=== PATIENT | male | born 1970 | race Hispanic/Latino ===

== ENCOUNTER 2017-10-17 15:17 | Emergency (ER) | payer MEDICARE ==
[~2017-10-17] VITALS: Ht 170.2 cm; Wt 79.4 kg
[~2017-10-17 15:17] MED LIST: ASPIR-LOW81 MG PO; ASPIRIN325 MG PO; ATORVASTATIN CA10 MG PO; AZITHROMYCIN250 MG PO; CALCIUM ACETAT667 M1 PO; CARVEDILOL12.5 MG PO; CIPRO500 MG PO; COREG12.5 MG PO; FLOMAX0.4 MG PO; GLIPIZIDE ER5 MG PO; HUMALOG100 UNIT/1 SQ; KEPPRA500 MG PO; LASIX; LASIX40 MG PO; LEVEMIR100 UNIT/1 SC; LEVEMIR100 UNIT/1 SQ; LISINOPRIL10 MG PO; MELATONIN3 MG PO; METOPROLOL TART25 MG PO; NIFEDIPINE10 MG PO; PENICILLIN V P500 MG PO; PLAVIX75 MG PO; POLYETHYLENE GL17 GM PO; RENVELA0.8 GM PO; SACUBITRIL VALSARTAN PO; TAMSULOSIN HCL0.4 MG PO; VITAMIN D1000 UNI1 PO; WARFARIN SODIU2.5 MG PO
--- OUTSIDE RECORDS SUMMARY | 2017-10-17 15:19 | XMS REPORT | Clinical Summary ---
Author Author DAVE [facility] Address Unknown Phone Unavailable Care Team Providers [employer] Employee Name Role Phone PCP Unavailable Allergies No Known Allergies Current Medications Prescription Sig. Disp. Refills Start End Date Status Date atorvastatin (LIPITOR) 40 Take 40 mg by mouth Active MG tablet daily. sevelamer (RENVELA) 800 Take 3,200 mg by mouth Active mg tablet daily . tamsulosin (FLOMAX) 0.4 Take 0.4 mg by mouth Active mg Cp24 24 hr capsule nightly. levETIRAcetam (KEPPRA) Take 500 mg by mouth 2 Active 500 MG tablet (two) times daily. BD Ultra-Fine Irish Use as directed. Dispense 600 each 3 01/21/20 Active Insulin Pen [place] 4 mm as written, do not 16 x 32 G substitute. Brand medically necessary.to use 6 a day. pregabalin (LYRICA) 150 Take 150 mg by mouth 2 Active MG capsuleIndications: (two) times daily. 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 Missing or Non-Formulary Take 5 mg by mouth 2 Active MedicationIndications: (two) times daily. Eliquis 5 mg BID insulin detemir (LEVEMIR To use 16 units twice a 45 mL 3 05/20/20 Active FLEXTOUCH) 100 unit/mL (3 day. 17 mL) InPn injection famotidine (PEPCID) 20 MG Take 1 tablet (20 mg 0 05/20/20 Active tablet total) by mouth daily. 17 apixaban (ELIQUIS) 5 mg Take 1 tablet (5 mg 0 05/20/20 Active Tab tablet total) by mouth 2 (two) 17 times daily. carvedilol (COREG) 3.125 Take 1 tablet (3.125 mg 0 05/20/20 05/20/20 Active MG tablet total) by mouth 2 (two) 17 18 times daily. clopidogrel (PLAVIX) 75 Take 75 mg by mouth 05/20/20 Discontin mg tablet daily. 17 ued famotidine (PEPCID) 20 MG Take 20 mg by mouth 05/20/20 Discontin tablet daily. 17 ued aspirin 81 MG EC tablet Take 1 tablet (81 mg 30 tablet 0 01/21/20 Discontin total) by mouth daily. 16 17 ued blood-glucose meter kit Use as instructed 400 each 3 01/21/20 glucometer 16 17 Test strips to use 4 a day # 400 Refills x 3 Lancets to use 4 a day # 400 Refills x 3. carvedilol (COREG) 6.25 Take 1 tablet (6.25 mg 60 tablet 0 01/21/20 01/21/20 MG tablet total) by mouth 2 (two) 16 17 times daily. ferrous sulfate 325 (65 Take 1 tablet (325 mg 60 tablet 0 01/21/20 01/21/20 FE) MG tablet total) by mouth 2 (two) 16 17 times daily. insulin aspart (NOVOLOG To use up to 24 units 45 mL 3 01/21/2005/20 Discontin FLEXPEN) 100 unit/mL InPn three times a day with 16 17 ued meals. insulin detemir (LEVEMIR To use 32 units twice a 45 mL 3 01/21/20 Discontin FLEXTOUCH) 100 unit/mL (3 day. 16 17 ued mL) InPn injection insulin detemir (LEVEMIR To use 32 units bid. 45 mL 3 01/21/2005/20 Discontin FLEXTOUCH) 100 unit/mL (3 16 17 ued mL) InPn injection NIFEdipine (ADALAT CC) 30 Take 1 tablet (30 mg 30 tablet 0 01/21/20 01/21/20 MG 24 hr tablet total) by mouth daily. 16 17 HYDROmorphone (DILAUDID) Inject 0.5 mg 05/20/20 Discontin injection 1 intravenously every 2 17 ued mg/mLIndications: Severe (two) hours as needed. Pain carvedilol (COREG) 25 MG Take 25 mg by mouth 2 05/20/20 Discontin tablet (two) times daily with 17 ued breakfast and dinner. DAPTOmycin (CUBICIN) Inject 500 mg 05/20/20 Discontin IVIndications: after intravenously every 17 ued dialysis MWF Monday, Monday, Monday. vancomycin (VANCOCIN) Inject 1,000 mg 0 05/16/20 06/27/20 1000 mg in sodium intravenously 3 (three) 17 17 chloride 0.9 % (NS) 250 times a week for 42 days. mL ADD EASE IVPB HYDROcodone-acetaminophen Take 1 tablet by mouth 30 tablet 0 05/20/20 05/30/20 (NORCO 10-325) 10-325 mg every 4 (four) hours as 17 17 per tablet needed for Pain for up to 10 days. Max Daily Amount: 6 tablets Active Problems Problem Noted Date Infection and inflammatory reaction due to cardiac device, implant, and graft ([facility]) Septic shock ([facility]) 05/19/2017 MRSA bacteremia 05/09/2017 DM (diabetes mellitus), type 2, uncontrolled ([facility]) 01/21/2016 Acute blood loss anemia 01/21/2016 Anemia in ESRD (end-stage renal disease) ([facility]) 01/21/2016 ESRD (end stage renal disease) on dialysis ([facility]) 01/14/2016 S/P CABG x 5 01/14/2016 Hyperkalemia 01/14/2016 On intra-aortic balloon pump assist 01/14/2016 Acute post-operative pain 01/14/2016 Coronary artery disease involving [place] coronary artery of [place] heart 12/2015 without angina pectoris CAD (coronary artery disease) 01/08/2016 Ischemic cardiomyopathy 01/08/2016 Encounters Date Type Specialty Care Team Description 05/18/2017 Procedure Pass 05/18/2017 Surgery Finesse Vega, DEBRIDEMENT/I&D,WOUND MD EXTREMITY LOWER 05/17/2017 Anesthesia Shashi Avelar MD Event 05/12/2017 Anesthesia Manjit Estrella, Event BAND SEWER 05/12/2017 Procedure Pass 05/12/2017 Surgery Zhen Peterson, DEBRIDEMENT/I&D,STERNUM MD 05/09/2017 Hospital General Internal Medicine El Rivers MD - Encounter Mary Nestornel Tarangobenjaminjoy, 05/20/2017 MD Red, Mendel Lovett MD after 10/16/2016 Social History Tobacco Use Types Packs/Day Years Used Date Former Smoker Smokeless Tobacco: Never Used Comments: SMOKED SINCE HE WAS 17YRS OLD TO 11/2014 Alcohol Use Drinks/Week oz/Week Comments No Sex Assigned at Date Recorded Not on file Last Filed Vital Signs Vital Sign Reading Time Taken Blood Pressure 142/66 05/20/2017 12:00 PM CDT Pulse 88 05/20/2017 12:00 PM CDT Temperature 37.3 C (99.1 F) 05/20/2017 12:00 PM CDT Respiratory Rate 18 05/20/2017 12:00 PM CDT Oxygen Saturation 97% 05/20/2017 12:00 PM CDT Inhaled Oxygen - - Concentration Weight 88.8 kg (195 lb 12.8 oz) 05/19/2017 4:00 AM CDT Height 170.2 cm (5' 7") 05/18/2017 11:04 AM CDT Body Mass Index 30.67 05/19/2017 4:00 AM CDT Plan of Treatment Health Maintenance Due Date Last Done Comments INFLUENZA VACCINE 06/11/2017 Procedures Procedure Name Priority Date/Time Associated Diagnosis Comments DEBRIDEMENT/I&D,WOUND 05/18/2017 ILOPSOAS ABCESS EXTREMITY LOWER 1:16 PM CDT Case Notes I&D OF LEFT ILOPSOAS DEBRIDEMENT/I&D,STERNUM 05/12/2017 sterno clavicular abcess 8:00 AM CDT after 10/16/2016 Results * ECHOCARDIOGRAM REPORT - SCAN (06/13/2017 1:22 PM) Only the most recent of 2 results within the time period is included. * RHYTHM STRIP - SCAN (06/08/2017 5:21 PM) Only the most recent of 3 results within the time period is included. * TRANSFUSION SERVICE REPORT - SCAN (05/23/2017 3:54 PM) Only the most recent of 3 results within the time period is included. * Prepare Leuko-Red RBC (05/20/2017 11:54 PM) Only the most recent of 2 results within the time period is included. Component Value Ref Range CROSSMATCH COMPATIBLE Unit ABO A Pos UNIT NUMBER [id number] Status TRANSFUSED Blood Bank Product RED BLOOD CELLS PRODUCT CODE [id number] Specimen Performing Laboratory Other [facility] [place] * POC-Glucose meter (05/20/2017 11:20 AM) Only the most recent of 45 results within the time period is included. Component Value Ref Range POC-Glucose Meter 211 (H)Comment: TESTED AT [facility] [address] [facility] 70 - 110 mg/dL [facility] [address] Specimen Performing Laboratory Blood [address] [address] * Transfuse Leuko-Red RBC (05/20/2017 7:12 AM) Only the most recent of 2 results within the time period is included. * CBC with platelet count + automated diff (05/20/2017 4:16 AM) Only the most recent of 11 results within the time period is included. Component Value Ref Range WBC 10.7 (H) 4.0 - 10.0 K/ L RBC 2.62 (L) 4.20 - 5.80 M/ L Hemoglobin 7.9 (L) 13.0 - 16.8 GM/DL Hematocrit 24.0 (L) 40.0 - 50.0 % MCV 91.5 82.0 - 98.0 fL MCH 30.1 27.0 - 33.0 pg MCHC 32.9 32.0 - 36.0 GM/DL RDW 22.0 (H) 12.0 - 15.0 % Platelets 350 150 - 430 K/CU MM MPV 8.1 6.5 - 10.5 fL nRBC 0 0 - 0 /100 WBC % Neutros 72 % % Lymphs 15 % % Monos 13 % % Eos 1 % % Baso 0 % # Neutros 7.70 1.80 - 8.00 K/ L # Lymphs 1.60 1.48 - 4.50 K/ L # Monos 1.40 (H) 0.00 - 1.30 K/ L # Eos 0.10 0.00 - 0.50 K/ L # Baso 0.00 0.00 - 0.20 K/ L Specimen Performing Laboratory Blood - Arm, [facility] [address] [place] [address] * CBC with platelet count + automated diff (05/20/2017 4:16 AM) Only the most recent of 11 results within the time period is included. Specimen Performing Laboratory Blood Narrative The following orders were created for panel order CBC with platelet count + automated diff. Procedure Abnormality Status --------- - ------ CBC with platelet count ...[[id number]]AbnormalFinal result Please view results for these tests on the individual orders. * Magnesium (05/20/2017 4:16 AM) Only the most recent of 8 results within the time period is included. Component Value Ref Range Magnesium 1.8 1.5 - 3.0 mg/dL Specimen Performing Laboratory Blood - [place], [place] [address] * Basic Metabolic Panel (05/20/2017 4:16 AM) Only the most recent of 10 results within the time period is included. Component Value Ref Range Sodium 139 135 - 148 meq/L Potassium 3.8 3.5 - 5.5 meq/L Chloride 101 98 - 106 meq/L CO2 25 20 - 31 meq/L BUN 23 10 - 26 mg/dL Creatinine 4.47 (H) 0.50 - 1.20 mg/dL Glucose 188 (H) 70 - 110 mg/dL Calcium 8.4 (L) 8.5 - 10.5 mg/dL EGFR 14Comment: ESTIMATED GFR IS NOT ACCURATE mL/min/1.73 sq m CREATININE CLEARANCE IN PREDICTING GLOMERULAR FILTRATION RATE. ESTIMATED GFR IS NOT APPLICABLE FOR DIALYSIS PATIENTS. Specimen Performing Laboratory Blood - Arm, [place] [address] * Type and screen (05/19/2017 11:41 AM) Only the most recent of 2 results within the time period is included. Component Value Ref Range Ab Scrn NEGATIVE ABO Grouping A Rh Factor POS Specimen [place] [address] * Hemoglobin and hematocrit (05/19/2017 9:12 AM) Component Value Ref Range Hemoglobin 7.5 (L) 13.0 - 16.8 GM/DL Hematocrit 23.6 (L) 40.0 - 50.0 % Specimen Performing [place] [address] * Lactic acid, venous, whole blood (05/18/2017 11:29 PM) Component Value Ref Range Lactate, Venous 1.3 0.5 - 2.2 mmol/L Specimen Performing Laboratory Blood - Arm, [facility] [address] [place] [address] Narrative Effective 01/13/2016: Units/Reference Range Change New: 0.5-2.2 mmol/LPrevious: 5-20 mg/dL * Procalcitonin (05/18/2017 11:19 PM) Only the most recent of 2 results within the time period is included. Component Value Ref Range Procalcitonin 0.86 (H) <0.05 ng/mL Specimen Performing Laboratory Blood - Arm, [facility] [address] [place] [address] Narrative SEPSIS RISK (ng/mL) Low:0.05-0.50 Intermediate: 0.51-2.00 High: >=2.01 * Vancomycin level, random (05/18/2017 3:56 AM) Component Value Ref Range Vancomycin Rm 24.8 ug/mL Specimen Performing Laboratory Blood [facility] [address] [place] [address] Narrative Reference Range: No Normals Random vancomycin level with AM labs. * CT abdomen/pelvis with IV contrast (05/17/2017 12:47 AM) Only the most recent of 2 results within the time period is included. Specimen Performing Laboratory [employer] Narrative FINAL REPORT CLINICAL HISTORY: Previous diagnosis of left iliopsoas abscess FINDINGS: Multiple axial images of the abdomen and pelvis were performed after the uncomplicated administration of IV contrast. Oral contrast was given. This exam was performed according to our departmental dose-optimization program, which includes automated exposure control, adjustment of the mA and/or kV according to patient size and/or use of the iterative reconstruction technique. Comparison: May 10, 2017 Lower chest: Atelectasis versus pneumonitis in the left lung base. Small left effusion. Cardiomegaly. Previous median sternotomy. Liver: No significant findings. Gallbladder and biliary tree: High density in the gallbladder lumen, likely excreted IV contrast from a recent procedure Spleen: No significant findings. Adrenal Glands: No significant findings. Kidneys and ureters: No contrast excretion from the kidneys on delayed imaging, consistent with renal dysfunction Stomach and Duodenum: No significant findings. Pancreas: No significant findings. Bowel: No significant findings. Appendix: Normal. Bladder: Distended with urine Major vascular structures: Atherosclerotic calcifications Reproductive organs: No significant findings. Other: Redemonstrated ill-defined rim-enhancing hypodensity in the left iliopsoas muscle with a maximum cross-sectional dimension of 2.4 x 1.6 cm Skeleton: Advanced degenerative changes in the left hip. Underlying femoral head osteonecrosis cannot be excluded. IMPRESSION: Redemonstrated, ill-defined rim-enhancing hypodensity in the left iliopsoas muscle, now measuring 2.4 x 1.6 cm in maximum cross-sectional dimension, phlegmon versus abscess. Size is slightly decreased from previous. Small left pleural effusion and adjacent atelectasis versus pneumonitis. No IV contrast excretion from the kidneys on delayed imaging suggesting renal dysfunction. Advanced degenerative changes in the left hip. Underlying osteonecrosis cannot be excluded. Evaluation with MRI can be performed, if indicated. Signed: Anson Boo MD Report Verified Date/Time:05/17/2017 02:26:37 Reading Location: [address] Reading Room Procedure Note Interface, External Ris In - 05/17/2017 2:28 AM CDT FINAL REPORT CLINICAL HISTORY: Previous diagnosis of left iliopsoas abscess FINDINGS: Multiple axial images of the abdomen and pelvis were performed after the uncomplicated administration of IV contrast. Oral contrast was given. This exam was performed according to our departmental dose-optimization program, which includes automated exposure control, adjustment of the mA and/or kV according to patient size and/or use of the iterative reconstruction technique. Comparison: May 10, 2017 Lower chest: Atelectasis versus pneumonitis in the left lung base. Small left effusion. Cardiomegaly. Previous median sternotomy. Liver: No significant findings. Gallbladder and biliary tree: High density in the gallbladder lumen, likely excreted IV contrast from a recent procedure Spleen: No significant findings. Adrenal Glands: No significant findings. Kidneys and ureters: No contrast excretion from the kidneys on delayed imaging, consistent with renal dysfunction Stomach and Duodenum: No significant findings. Pancreas: No significant findings. Bowel: No significant findings. Appendix: Normal. Bladder: Distended with urine Major vascular structures: Atherosclerotic calcifications Reproductive organs: No significant findings. Other: Redemonstrated ill-defined rim-enhancing hypodensity in the left iliopsoas muscle with a maximum cross-sectional dimension of 2.4 x 1.6 cm Skeleton: Advanced degenerative changes in the left hip. Underlying femoral head osteonecrosis cannot be excluded. IMPRESSION: Redemonstrated, ill-defined rim-enhancing hypodensity in the left iliopsoas muscle, now measuring 2.4 x 1.6 cm in maximum cross-sectional dimension, phlegmon versus abscess. Size is slightly decreased from previous. Small left pleural effusion and adjacent atelectasis versus pneumonitis. No IV contrast excretion from the kidneys on delayed imaging suggesting renal dysfunction. Advanced degenerative changes in the left hip. Underlying osteonecrosis cannot be excluded. Evaluation with MRI can be performed, if indicated. Signed: Anson Boo MD Report Verified Date/Time: 05/17/2017 02:26:37 Reading Location: [address] Reading Room * Blood culture (05/16/2017 2:58 PM) Only the most recent of 6 results within the time period is included. Component Value Ref Range Result No growth in 5 days Specimen Performing Laboratory Blood - Arm, [facility] [address] [place] [address] * aPTT (05/16/2017 10:11 AM) Only the most recent of 14 results within the time period is included. Component Value Ref Range PTT 74.3 (H) 23.2 - 36.1 seconds Specimen Performing Laboratory Blood - Arm, [facility] [address] [place] [address] * PT/aPTT (05/16/2017 4:05 AM) Only the most recent of 3 results within the time period is included. Component Value Ref Range Protime 14.2 11.8 - 14.4 seconds INR 1.1 (L) 1.2 - 1.5 PTT 101.0 (H) 23.2 - 36.1 seconds Specimen Performing Laboratory Blood [facility] [address] [place] [address] Narrative RECOMMENDED COUMADIN/WARFARIN INR THERAPY RANGES STANDARD DOSE: 2.0 - 3.0 Includes: PROPHYLAXIS for venous thrombosis, systemic embolization; TREATMENT for venous thrombosis and/or pulmonary embolus. HIGH RISK: Target INR is 2.5-3.5 for patients with mechanical heart valves. * XR chest 1 view portable / bedside (05/14/2017 6:00 AM) Only the most recent of 3 results within the time period is included. Specimen Performing Laboratory [facility] Narrative FINAL REPORT CLINICAL INDICATION: Cough and atelectasis Comparison: 05/13/2017 The cardiomediastinal contours are stable. Central pulmonary vascular congestion appears slightly worsened. Worsening retrocardiac opacity in the left lung may reflect some combination of atelectasis and edema but pneumonitis should be excluded clinically. There is no pneumothorax. Signed: Anson Boo MD Report Verified Date/Time:05/14/2017 06:46:29 Reading Location: [address] Reading Room Procedure Note Interface, External Ris In - 05/14/2017 6:48 AM CDT FINAL REPORT CLINICAL INDICATION: Cough and atelectasis Comparison: 05/13/2017 The cardiomediastinal contours are stable. Central pulmonary vascular congestion appears slightly worsened. Worsening retrocardiac opacity in the left lung may reflect some combination of atelectasis and edema but pneumonitis should be excluded clinically. There is no pneumothorax. Signed: Anson Boo MD Report Verified Date/Time: 05/14/2017 06:46:29 Reading Location: [address] Reading Room * Phosphorus (05/13/2017 4:26 AM) Only the most recent of 3 results within the time period is included. Component Value Ref Range Phosphorus 6.8 (H) 2.5 - 4.5 mg/dL Specimen Performing Laboratory Blood [facility] [address] [facility] [place] [address] * AFB culture + smear (05/12/2017 8:58 AM) Only the most recent of 2 results within the time period is included. Component Value Ref Range Result No acid-fast bacilli isolated in 42 days AFB Smear No acid fast bacilli seen Specimen Performing Laboratory Tissue - Clavicle, Left [facility] [address] [place] [address] * Anaerobic culture (05/12/2017 8:58 AM) Only the most recent of 2 results within the time period is included. Component Value Ref Range Result No anaerobes isolated Specimen Performing Laboratory [facility] [id number] [place] [address] * Surgically obtained culture + gram stain (05/12/2017 8:58 AM) Only the most recent of 2 results within the time period is included. Component Value Ref Range Result 1+ Staphylococcus aureus (A)Comment: Methicillin Resistant Staphylococcus aureus isolated. Gram Stain Result <1+ White blood cells seen Gram Stain Result No organisms seen Specimen Performing Laboratory [facility] [address] [place] [address] Organism Antibiotic Method Susceptibility Staphylococcus aureus Clindamycin <=0.12: Susceptible Staphylococcus aureus Erythromycin >=8: Resistant Staphylococcus aureus Linezolid 2: Susceptible Staphylococcus aureus Oxacillin >=4: Resistant Staphylococcus aureus Rifampin <=0.5: Susceptible Staphylococcus aureus Tetracycline <=1: Susceptible Staphylococcus aureus Trimethoprim + <=10: Susceptible Sulfamethoxazole Staphylococcus aureus Vancomycin 1: Susceptible * Fungus culture + smear (05/12/2017 8:58 AM) Only the most recent of 2 results within the time period is included. Component Value Ref Range Result No fungus isolated in 28 days Fungus Smear No fungi seen Specimen Performing Laboratory Tissue - [facility], [address] [address] * Tissue Exam (05/12/2017 8:58 AM) Component Value Ref Range Case Report Surgical Pathology Report Case: [id number] Authorizing Provider: Zhen Peterson MD Collected: 05/12/2017 0858 Ordering Location: [facility] - Perioperative Received: 05/12/2017 1033 Services Pathologist: Vimal Hanson MD Specimen: Clavicle, Left, left clavicular head DIAGNOSIS CLAVICULAR HEAD, LEFT, DEBRIDEMENT - ACUTE AND CHRONIC OSTEOMYELITIS WITH GRANULATION TISSUE - NEGATIVE FOR MALIGNANCY Signing Pathologist Direct Phone Line: [phone] CPT Code(s) 26847; 04963 CLINICAL HISTORY Sternoclavicular abscess; debridement and I&D of sternum SPECIMEN SOURCE Left clavicle GROSS DESCRIPTION The instrument, paperwork, container, and cassette all read [id number]. Received in a container of formalin with the patient's name (Colton) and medical record number. Specimen A: Received in formalin labeled as "left clavicle tissue" are two pink-trevino segments of bone aggregating to 1.1 x 1.0 x 0.3 cm. The specimen is totally submitted in cassette A1 for processing after decalcification. JF/ew Specimen Performing Laboratory Tissue - Clavicle, Left [facility] [address] [place] [address] * SPIN/CONCENTRATION CHARGE (05/12/2017 8:53 AM) Component Value Ref Range Concentration charged Done Specimen Performing Laboratory Abscess - Clavicle, Left [address] [address] * XR hip 2 views left (05/11/2017 9:30 AM) Specimen Performing Laboratory [facility] Narrative FINAL REPORT TECHNIQUE: Frontal andlateral radiographs of the left hip dated 05/11/2017 HISTORY: Possible osteo COMPARISON: None. FINDINGS: No fracture or dislocation. There are ill-defined regions of lucency in the superior lateral aspect of the femoral head and acetabulum, best seen on the CT of the abdomen and pelvis. There is marked joint space narrowing of the left hip. No bone erosion or soft tissue nodule seen. No radiodense foreign body or subcutaneous emphysema. Vascular calcifications are seen. IMPRESSION: No fracture or dislocation. Ill-defined regions of lucency in the femoral head and acetabulum as described above, best seen on the CT scan performed one day prior. While these may be degenerative in nature, given the concern for infection, osteomyelitis cannot be excluded. MRI is recommended. Signed: Khris Miranda MD Report Verified Date/Time:05/11/2017 09:46:33 Reading Location: [facility] Radiology Reading Room Procedure Note Interface, External Ris In - 05/11/2017 9:48 AM CDT FINAL REPORT TECHNIQUE: Frontal and lateral radiographs of the left hip dated 05/11/2017 HISTORY: Possible osteo COMPARISON: None. FINDINGS: No fracture or dislocation. There are ill-defined regions of lucency in the superior lateral aspect of the femoral head and acetabulum, best seen on the CT of the abdomen and pelvis. There is marked joint space narrowing of the left hip. No bone erosion or soft tissue nodule seen. No radiodense foreign body or subcutaneous emphysema. Vascular calcifications are seen. IMPRESSION: No fracture or dislocation. Ill-defined regions of lucency in the femoral head and acetabulum as described above, best seen on the CT scan performed one day prior. While these may be degenerative in nature, given the concern for infection, osteomyelitis cannot be excluded. MRI is recommended. 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 This exam was performed according to our departmental dose-optimization program, which includes automated exposure control, adjustment of the mA and/or kV according to patient size and/or use of the iterative reconstruction technique. Comparison: 11/16/2015. Chest: Lung parenchyma: Left greater than right dependent atelectasis. Curvilinear opacity in the nondependent mid lungs, scarring versus atelectasis. Pleural effusion: None. Pneumothorax: None. Tracheobronchial tree: No significant findings. Pulmonary vasculature: No significant findings. Cardiac contours and great vessels: Cardiomegaly. Interval CABG and removal of a right subclavian ICD Mediastinum: No significant findings. Lymph Nodes: No adenopathy in the mediastinum or milan. Skeleton: Rim-enhancing fluid collection at the left sternoclavicular junction including punctate internal gas. The collection measures 5.1 x 4.9 cm. There is destruction of the distal left clavicle and adjacent sternum. Inflammatory changes extend to the posterior margin of the superior sternum. Chronic-appearing fracture of the anterolateral right seventh rib, new from previous. Abdomen and pelvis: Liver: No significant findings. Gallbladder and biliary tree: High density in the dependent gallbladder lumen, possibly excreted IV contrast from recent procedure or sludge. Spleen: No significant findings. Adrenal Glands: No significant findings. Kidneys and ureters: No contrast excretion from the kidneys on delayed imaging, consistent with medical renal disease. Stomach and Duodenum: No significant findings. Pancreas: No significant findings. Bowel: No significant findings. Appendix: Normal. Bladder: No significant findings. Major vascular structures: Atherosclerotic calcifications Reproductive organs: No significant findings. Other: Slightly heterogeneous, low-density, rim-enhancing prominence in the left iliopsoas muscle with a maximum cross-sectional dimension of 3.0 x 2.2 cm. Skeleton: No acute bony abnormality. 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 3.0 x 2.2 cm left iliopsoas muscle phlegmon versus abscess. Cardiomegaly. Interval CABG and removal of a right subclavian ICD. No persistent leads remain. Left greater than right dependent atelectasis versus pneumonitis. Signed: Anson Boo MD Report Verified Date/Time:05/10/2017 22:51:53 Reading Location: [facility] B1 C013Y CT Body Reading Room Procedure Note Interface, External Ris In - 05/10/2017 10:54 PM CDT FINAL REPORT CLINICAL HISTORY: Iliopsoas and left sternoclavicular abscesses, history of endocarditis that an outside facility, dialysis patient, left hip pain FINDINGS: Multiple axial images of the chest, abdomen and pelvis were performed after the uncomplicated administration of IV contrast. Oral contrast was given. This exam was performed according to our departmental dose-optimization program, which includes automated exposure control, adjustment of the mA and/or kV according to patient size and/or use of the iterative reconstruction technique. Comparison: 11/16/2015. Chest: Lung parenchyma: Left greater than right dependent atelectasis. Curvilinear opacity in the nondependent mid lungs, scarring versus atelectasis. Pleural effusion: None. Pneumothorax: None. Tracheobronchial tree: No significant findings. Pulmonary vasculature: No significant findings. Cardiac contours and great vessels: Cardiomegaly. Interval CABG and removal of a right subclavian ICD Mediastinum: No significant findings. Lymph Nodes: No adenopathy in the mediastinum or milan. Skeleton: Rim-enhancing fluid collection at the left sternoclavicular junction including punctate internal gas. The collection measures 5.1 x 4.9 cm. There is destruction of the distal left clavicle and adjacent sternum. Inflammatory changes extend to the posterior margin of the superior sternum. Chronic-appearing fracture of the anterolateral right seventh rib, new from previous. Abdomen and pelvis: Liver: No significant findings. Gallbladder and biliary tree: High density in the dependent gallbladder lumen, possibly excreted IV contrast from recent procedure or sludge. Spleen: No significant findings. Adrenal Glands: No significant findings. Kidneys and ureters: No contrast excretion from the kidneys on delayed imaging, consistent with medical renal disease. Stomach and Duodenum: No significant findings. Pancreas: No significant findings. Bowel: No significant findings. Appendix: Normal. Bladder: No significant findings. Major vascular structures: Atherosclerotic calcifications Reproductive organs: No significant findings. Other: Slightly heterogeneous, low-density, rim-enhancing prominence in the left iliopsoas muscle with a maximum cross-sectional dimension of 3.0 x 2.2 cm. Skeleton: No acute bony abnormality. 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 3.0 x 2.2 cm left iliopsoas muscle phlegmon versus abscess. Cardiomegaly. Interval CABG and removal of a right subclavian ICD. No persistent leads remain. Left greater than right dependent atelectasis versus pneumonitis. Signed: Anson Boo MD Report Verified Date/Time: 05/10/2017 22:51:53 Reading Location: [facility] B1 C013Y CT Body Reading Room * PERIPHERAL VASCULAR REPORT - SCAN (05/10/2017 1:50 PM) * Venous doppler legs bilateral (05/10/2017 12:00 PM) Specimen Performing Laboratory [email or web address] FINAL REPORT TECHNIQUE: Grayscale, color Doppler, and spectral Doppler ultrasound of the bilateral lower extremity veins. INDICATION: Evaluate for deep venous thrombosis. COMPARISON: None available. FINDINGS: There is nonocclusive thrombus involving the mid and distal segments of the popliteal vein extending to the posterior tibial and peroneal veins. The right common femoral, superficial femoral, proximal deep femoral, and proximal great saphenous are patent with normal waveforms and without echogenic filling defects, with normal compressibility. The left common femoral, superficial femoral, proximal deep femoral, proximal great saphenous, and popliteal veins are patent with normal waveforms and without echogenic filling defects. Visualized portions of the veins below the calf are also patent. All of the veins that could be examined with compression maneuvers are normally compressible. Normal pulsed wave Doppler response in the common femoral vein with calf augmentation. IMPRESSION: Nonocclusive thrombus involving the mid and distal segments of the right popliteal vein extending into the posterior tibial and peroneal veins. No evidence of deep venous thrombosis. The findings were discussed with the patient's nurse, Elis on the floor at 12:51 PM on 05/10/2017. Signed: Elijah Ivey MD Report Verified Date/Time:05/10/2017 12:52:31 Reading Location: [facility] Radiology Reading Room Procedure Note Interface, External Ris In - 05/10/2017 12:54 PM CDT FINAL REPORT TECHNIQUE: Grayscale, color Doppler, and spectral Doppler ultrasound of the bilateral lower extremity veins. INDICATION: Evaluate for deep venous thrombosis. COMPARISON: None available. FINDINGS: There is nonocclusive thrombus involving the mid and distal segments of the popliteal vein extending to the posterior tibial and peroneal veins. The right common femoral, superficial femoral, proximal deep femoral, and proximal great saphenous are patent with normal waveforms and without echogenic filling defects, with normal compressibility. The left common femoral, superficial femoral, proximal deep femoral, proximal great saphenous, and popliteal veins are patent with normal waveforms and without echogenic filling defects. Visualized portions of the veins below the calf are also patent. All of the veins that could be examined with compression maneuvers are normally compressible. Normal pulsed wave Doppler response in the common femoral vein with calf augmentation. IMPRESSION: Nonocclusive thrombus involving the mid and distal segments of the right popliteal vein extending into the posterior tibial and peroneal veins. No evidence of deep venous thrombosis. The findings were discussed with the patient's nurse, Elis on the floor at 12:51 PM on 05/10/2017. Signed: Elijah Ivey MD Report Verified Date/Time: 05/10/2017 12:52:31 Reading Location: [facility] Radiology Reading Room * 2D Echo W/Doppler(CW/PW/Color) (05/10/2017 10:26 AM) Component Value Ref Range Ejection Fraction Specimen Performing Laboratory SLE ECHO HEARTLAB MKCKESSON CPA Narrative Transthoracic Echocardiography Report (TTE) Demographics Patient Name SEBASTIAN SILVA Date of Study 05/10/2017 LUCIAN [id number] Gender Male Visit Number [id number] Race Other [id number] Number [id number] Number Date of Birth1970 Referring Physician Darek Dasilva Age47 year(s) Ecological Economist Luke Sykes RT [facility] Physician Jeffery Freire MD Procedure Type of Study TTE procedure:2DECHO W DOPPLER(CW/PW/COLOR) Indications:Suspected infective endocarditis with positive cultures or new murmur. Height: 67 inches Weight: 83.91 kg (184.99 lbs) BSA: 1.96 m^2 BMI: 28.97 kg/m^2 BP: 128/72 mmHg Summary Normal left ventricular chamber size. Moderate concentric hypertrophy. Anterior, apical and septal wall motions are akinetic. The visual ejection fraction was estimated 25-30%. Normal aortic valve structure and function. No evidence of pericardial effusion. Mildly dilated left atrium. Normal mitral valve structure. There is mild mitral regurgitation present. Normal right ventricle structure and function. Normal tricuspid valve structure. Mild tricuspid regurgitation. Mildly dilated right atrium. Normal pulmonic valve structure and function. Signature Findings Left Ventricle Normal left ventricular chamber size. Moderate concentric hypertrophy. Anterior, apical and septal wall motions are akinetic. The visual ejection fraction was estimated 25-30%. Left AtriumMildly dilated left atrium. Right VentricleNormal right ventricle structure and function. Right Atrium Mildly dilated right atrium. Aortic Valve Normal aortic valve structure and function. Mitral Valve Normal mitral valve structure. There is mild mitral regurgitation present. Tricuspid ValveNormal tricuspid valve structure. Mild tricuspid regurgitation. Pulmonic Valve Normal pulmonic valve structure and function. PericardiumNo evidence of pericardial effusion. Chambers/Structures Left Atrium LA Dimension: 3.51 cm LA Area: 18.83 cm^2 Left Ventricle LVIDd: 6.17 cm LVEDV 2D: 235.37 ml LVIDs: 5.07 cm LVESV 2D: 122.22 ml LV Septum Diastolic: 1.45 cm LV Septum Systolic: 1.57 cm LV PW Diastolic: 0.82 cm LV FS: 17.8 % LV PW Systolic: 1.5 cm LV ESV (Cubed): 130.32 cc LVOT Diameter: 2.54 cm LV ESV (Teich):122.12 ml LV SV (Teich):69.73 ml LV SI (Teich):35.58 ml/m^2 LVEF 2D Teich: 48.1 % Right Ventricle RV Diast Dim.: 2.2 cm Aorta Ao Root S of Noris.: 3.33 cmAscending Aorta: 3.16 cm Pulmonary Vein: S Velocity: 0.55 m/s D Velocity: 0.41 m/s Doppler/Quantitative Measurements Mitral Valve MV Peak E-Wave: 0.72 m/s MV Peak A-Wave: 0.58 m/s E/A Ratio: 1.25 Peak Gradient: 2.09 mmHg Deceleration Time: 203.3 msec Aortic Valve Cusp Separation: 1.91 cm LVOT LVOT Diameter: 2.54 cm LVOT Area: 5.07 cm^2 Pulmonic Valve Peak Velocity: 0.75 m/s Peak Gradient: 2.25 mmHg Procedure Note Interface, External Ris In - 05/10/2017 1:05 PM CDT Transthoracic Echocardiography Report (TTE) Demographics Patient Name SILVASEBASTIAN HATFIELD Date of Study 05/10/2017 LUCIAN Gender Male Visit Number [id number] Race Other Room Number D253 Number Date of 1970 Referring Physician Darek Dasilva Age 47 year(s) Ecological Economist Luke Sykes RT Interpreting [facility] Physician Jeffery Freire MD Procedure Type of Study TTE procedure:2DECHO W DOPPLER(CW/PW/COLOR) Indications:Suspected infective endocarditis with positive cultures or new murmur. Height: 67 inches Weight: 83.91 kg (184.99 lbs) BSA: 1.96 m^2 BMI: 28.97 kg/m^2 BP: 128/72 mmHg Summary Normal left ventricular chamber size. Moderate concentric hypertrophy. Anterior, apical and septal wall motions are akinetic. The visual ejection fraction was estimated 25-30%. Normal aortic valve structure and function. No evidence of pericardial effusion. Mildly dilated left atrium. Normal mitral valve structure. There is mild mitral regurgitation present. Normal right ventricle structure and function. Normal tricuspid valve structure. Mild tricuspid regurgitation. Mildly dilated right atrium. Normal pulmonic valve structure and function. Signature Findings Left Ventricle Normal left ventricular chamber size. Moderate concentric hypertrophy. Anterior, apical and septal wall motions are akinetic. The visual ejection fraction was estimated 25-30%. Left Atrium Mildly dilated left atrium. Right Ventricle Normal right ventricle structure and function. Right Atrium Mildly dilated right atrium. Aortic Valve Normal aortic valve structure and function. Mitral Valve Normal mitral valve structure. There is mild mitral regurgitation present. Tricuspid Valve Normal tricuspid valve structure. Mild tricuspid regurgitation. Pulmonic Valve Normal pulmonic valve structure and function. Pericardium No evidence of pericardial effusion. Chambers/Structures Left Atrium LA Dimension: 3.51 cm LA Area: 18.83 cm^2 Left Ventricle LVIDd: 6.17 cm LVEDV 2D:235.37 ml LVIDs: 5.07 cm LVESV 2D:122.22 ml LV Septum Diastolic: 1.45 cm LV Septum Systolic: 1.57 cm LV PW Diastolic: 0.82 cm LV FS: 17.8 % LV PW Systolic: 1.5 cm LV ESV (Cubed):130.32 cc LVOT Diameter: 2.54 cm LV ESV (Teich):122.12 ml LV SV (Teich):69.73 ml LV SI (Teich):35.58 ml/m^2 LVEF 2D Teich: 48.1 % Right Ventricle RV Diast Dim.: 2.2 cm Aorta Ao Root S of Noris.: 3.33 cm Ascending Aorta: 3.16 cm Pulmonary Vein: S Velocity: 0.55 m/s D Velocity: 0.41 m/s Doppler/Quantitative Measurements Mitral Valve MV Peak E-Wave: 0.72 m/s MV Peak A-Wave: 0.58 m/s E/A Ratio: 1.25 Peak Gradient: 2.09 mmHg Deceleration Time: 203.3 msec Aortic Valve Cusp Separation: 1.91 cm LVOT LVOT Diameter: 2.54 cm LVOT Area: 5.07 cm^2 Pulmonic Valve Peak Velocity: 0.75 m/s Peak Gradient: 2.25 mmHg * Hepatitis B surface antibody (05/10/2017 8:48 AM) Component Value Ref Range Hep B S Ab <8.0 <8.0 mIU/mL Specimen Performing Laboratory Blood [address] [address] * Hepatitis B surface antigen (05/10/2017 8:48 AM) Component Value Ref Range hepatitis B Surface Ag Nonreactive Nonreactive Specimen Performing Laboratory [facility] [address] [place] [address] * Creatine Kinase (CK) (05/10/2017 3:31 AM) Component Value Ref Range Total CK 116 30 - 300 U/L Specimen Performing Laboratory [facility] [address] [place] [address] * Comprehensive metabolic panel (05/10/2017 3:31 AM) Component Value Ref Range Protein, Total 7.4Comment: Specimen slightly hemolyzed 6.0 - 8.5 gm/dL Albumin 2.8 (L)Comment: Specimen slightly hemolyzed 3.5 - 5.0 g/dL Alkaline Phosphatase 127 (H) 30 - 115 U/L Total Bilirubin 0.6Comment: Specimen slightly hemolyzed 0.1 - 1.3 mg/dL Sodium 135 135 - 148 meq/L Potassium 5.7 (H)Comment: Specimen slightly hemolyzed 3.5 - 5.5 meq/L Chloride 97 (L) 98 - 106 meq/L CO2 22 20 - 31 meq/L BUN 50 (H) 10 - 26 mg/dL Creatinine 7.25 (H)Comment: Specimen slightly hemolyzed 0.50 - 1.20 mg/dL Glucose 209 (H) 70 - 110 mg/dL Calcium 9.3 8.5 - 10.5 mg/dL AST 17Comment: Specimen slightly hemolyzed 5 - 40 U/L ALT 31Comment: Specimen slightly hemolyzed 6 - 50 U/L EGFR 8Comment: ESTIMATED GFR IS NOT ACCURATE mL/min/1.73 sq m CREATININE CLEARANCE IN PREDICTING GLOMERULAR FILTRATION RATE. ESTIMATED GFR IS NOT APPLICABLE FOR DIALYSIS PATIENTS. Specimen Performing Laboratory Blood [facility] [address] [place] [address] after 10/16/2016
--- OUTSIDE RECORDS SUMMARY | 2017-10-17 15:20 | XMS REPORT ---
[facility] Address Unknown Phone Unavailable Care Team Providers Care Technical Intern Name Role Phone MARY JANE NGUYEN Unavailable Unavailable ORAHNICKI MIRANDA Unavailable Unavailable Problems This patient has no known problems. Allergies, Adverse Reactions, Alerts This patient has no known allergies or adverse reactions. Medications This patient has no known medications. Results Test Description Test Time Test Comments Text Results Atomic Results Result Comments AFB CULTURE + SMEAR 2017-06-27 18:01:00 CULTURE (BEAKER) (test zznw=6915) No acid-fast bacilli isolated in 42 days AFB SMEAR (BEAKER) (test cgas=024) No acid fast bacilli seen AFB CULTURE + [id number] 18:01:00* Test Item Value Reference Range Comments CULTURE (BEAKER) (test vrtt=2732) No acid-fast bacilli isolated in 42 days AFB SMEAR (BEAKER) (test iqyz=975) No acid fast bacilli seen FUNGUS CULTURE + [id number] 09:49:00* Test Item Value Reference Range Comments CULTURE (BEAKER) (test wxzv=8581) No fungus isolated in 28 days FUNGUS SMEAR (BEAKER) (test xgoq=5213) No fungi seen FUNGUS CULTURE + [id number] 09:49:00* Test Item Value Reference Range Comments CULTURE (BEAKER) (test hoyd=7408) No fungus isolated in 28 days FUNGUS SMEAR (BEAKER) (test pybk=1262) No fungi seen BLOOD [id number] 19:00:00* Test Item Value Reference Range Comments CULTURE (BEAKER) (test bjng=0723) No growth in 5 days BLOOD [id number] 16:00:00* Test Item Value Reference Range Comments CULTURE (BEAKER) (test uuzp=0620) No growth in 5 days POCT-GLUCOSE [id number] 12:15:00* Test Item Value Reference Range Comments POC-GLUCOSE METER (BEAKER) (test cbet=5003) 211 mg/dL 70-110 TESTED AT [facility] [address] [facility] [address] POCT-GLUCOSE [id number] 07:43:00* Test Item Value Reference Range Comments POC-GLUCOSE METER (BEAKER) (test fnwe=2290) 214 mg/dL 70-110 TESTED AT [facility] [address] [facility] [address] POCT-GLUCOSE [id number] 05:29:00* Test Item Value Reference Range Comments POC-GLUCOSE METER (BEAKER) (test scfs=8476) 185 mg/dL 70-110 TESTED AT [facility] [address] [facility] [address] [id number] 04:51:00* Test Item Value Reference Range Comments MAGNESIUM (BEAKER) (test lytl=110) 1.8 mg/dL 1.5-3.0 BASIC METABOLIC [id number] 04:51:00* Test Item Value Reference Range Comments SODIUM (BEAKER) (test rqzx=718) 139 meq/L 135-148 POTASSIUM (BEAKER) (test wkgt=301) 3.8 meq/L 3.5-5.5 CHLORIDE (BEAKER) (test bpra=261) 101 meq/L 98-106 CO2 (BEAKER) (test vpmt=775) 25 meq/L 20-31 BLOOD UREA NITROGEN (BEAKER) (test jywz=737) 23 mg/dL 10-26 CREATININE (BEAKER) (test zvtf=079) 4.47 mg/dL 0.50-1.20 GLUCOSE RANDOM (BEAKER) (test npmw=636) 188 mg/dL 70-110 CALCIUM (BEAKER) (test oduy=783) 8.4 mg/dL 8.5-10.5 EGFR (BEAKER) (test fzfl=7751) 14 mL/min/1.73 sq m ESTIMATED GFR IS NOT ACCURATE CREATININE CLEARANCE IN PREDICTING GLOMERULAR FILTRATION RATE. ESTIMATED GFR IS NOT APPLICABLE FOR DIALYSIS PATIENTS. CBC W/PLT COUNT & AUTO [id number] 04:26:00* Test Item Value Reference Range Comments WHITE BLOOD CELL COUNT (BEAKER) (test whgu=303) 10.7 K/ L 4.0-10.0 RED BLOOD CELL COUNT (BEAKER) (test sxat=324) 2.62 M/ L 4.20-5.80 HEMOGLOBIN (BEAKER) (test nbbg=896) 7.9 GM/DL 13.0-16.8 HEMATOCRIT (BEAKER) (test inde=052) 24.0 % 40.0-50.0 MEAN CORPUSCULAR VOLUME (BEAKER) (test dfhk=973) 91.5 fL 82.0-98.0 MEAN CORPUSCULAR HEMOGLOBIN (BEAKER) (test mjrw=383) 30.1 pg 27.0-33.0 MEAN CORPUSCULAR HEMOGLOBIN CONC (BEAKER) (test caph=856) 32.9 GM/DL 32.0- 36.0 RED CELL DISTRIBUTION WIDTH (BEAKER) (test cyge=792) 22.0 % 12.0-15.0 PLATELET COUNT (BEAKER) (test hwxy=081) 350 K/CU MM 150-430 MEAN PLATELET VOLUME (BEAKER) (test fnsr=864) 8.1 fL 6.5-10.5 NUCLEATED RED BLOOD CELLS (BEAKER) (test cdro=158) 0 /100 WBC 0-0 NEUTROPHILS RELATIVE PERCENT (BEAKER) (test jfds=402) 72 % LYMPHOCYTES RELATIVE PERCENT (BEAKER) (test rzqz=700) 15 % MONOCYTES RELATIVE PERCENT (BEAKER) (test obid=860) 13 % EOSINOPHILS RELATIVE PERCENT (BEAKER) (test zurr=564) 1 % BASOPHILS RELATIVE PERCENT (BEAKER) (test duca=839) 0 % NEUTROPHILS ABSOLUTE COUNT (BEAKER) (test thpf=009) 7.70 K/ L 1.80-8.00 LYMPHOCYTES ABSOLUTE COUNT (BEAKER) (test nzbi=178) 1.60 K/ L 1.48-4.50 MONOCYTES ABSOLUTE COUNT (BEAKER) (test yjgw=993) 1.40 K/ L 0.00-1.30 EOSINOPHILS ABSOLUTE COUNT (BEAKER) (test qddf=583) 0.10 K/ L 0.00-0.50 BASOPHILS ABSOLUTE COUNT (BEAKER) (test ivwq=052) 0.00 K/ L 0.00-0.20 POCT-GLUCOSE [id number] 20:43:00* Test Item Value Reference Range Comments POC-GLUCOSE METER (BEAKER) (test giqc=6828) 146 mg/dL 70-110 TESTED AT [facility] [address] [place] [address] POCT-GLUCOSE [id number] 17:11:00* Test Item Value Reference Range Comments POC-GLUCOSE METER (BEAKER) (test dnyd=1052) 203 mg/dL 70-110 TESTED AT [facility] [address] [facility] [address] POCT-GLUCOSE [id number] 11:58:00* Test Item Value Reference Range Comments POC-GLUCOSE METER (BEAKER) (test guly=3944) 247 mg/dL 70-110 TESTED AT [facility] [address] [facility] [address] HEMOGLOBIN AND [id number] 09:27:00* Test Item Value Reference Range Comments HEMOGLOBIN (BEAKER) (test mzmb=870) 7.5 GM/DL 13.0-16.8 HEMATOCRIT (BEAKER) (test fzke=073) 23.6 % 40.0-50.0 BASIC METABOLIC [id number] 05:19:00* Test Item Value Reference Range Comments SODIUM (BEAKER) (test zecq=620) 138 meq/L 135-148 POTASSIUM (BEAKER) (test fxkm=574) 5.1 meq/L 3.5-5.5 CHLORIDE (BEAKER) (test gnij=651) 100 meq/L 98-106 CO2 (BEAKER) (test qwde=490) 22 meq/L 20-31 BLOOD UREA NITROGEN (BEAKER) (test iyiu=586) 43 mg/dL 10-26 CREATININE (BEAKER) (test sgve=999) 6.55 mg/dL 0.50-1.20 GLUCOSE RANDOM (BEAKER) (test czcz=323) 192 mg/dL 70-110 CALCIUM (BEAKER) (test jarn=254) 8.4 mg/dL 8.5-10.5 EGFR (BEAKER) (test rjnt=0782) 9 mL/min/1.73 sq m ESTIMATED GFR IS NOT ACCURATE CREATININE CLEARANCE IN PREDICTING GLOMERULAR FILTRATION RATE. ESTIMATED GFR IS NOT APPLICABLE FOR DIALYSIS PATIENTS. [id number] 05:10:00* Test Item Value Reference Range Comments MAGNESIUM (BEAKER) (test slmg=312) 1.9 mg/dL 1.5-3.0 CBC W/PLT COUNT & AUTO [id number] 05:05:00* Test Item Value Reference Range Comments WHITE BLOOD CELL COUNT (BEAKER) (test eiae=017) 13.1 K/ L 4.0-10.0 RED BLOOD CELL COUNT (BEAKER) (test cdlr=936) 2.44 M/ L 4.20-5.80 HEMOGLOBIN (BEAKER) (test fuzd=266) 7.3 GM/DL 13.0-16.8 Discordant result compared to previous result. Clinical correlation required. HEMATOCRIT (BEAKER) (test omlu=268) 23.0 % 40.0-50.0 MEAN CORPUSCULAR VOLUME (BEAKER) (test wszd=024) 94.2 fL 82.0-98.0 MEAN CORPUSCULAR HEMOGLOBIN (BEAKER) (test sain=335) 29.9 pg 27.0-33.0 MEAN CORPUSCULAR HEMOGLOBIN CONC (BEAKER) (test pbgu=990) 31.8 GM/DL 32.0- 36.0 RED CELL DISTRIBUTION WIDTH (BEAKER) (test rghj=717) 20.0 % 12.0-15.0 PLATELET COUNT (BEAKER) (test bmjd=948) 398 K/CU MM 150-430 MEAN PLATELET VOLUME (BEAKER) (test vmpv=938) 8.4 fL 6.5-10.5 NUCLEATED RED BLOOD CELLS (BEAKER) (test tgxe=139) 0 /100 WBC 0-0 NEUTROPHILS RELATIVE PERCENT (BEAKER) (test xfls=223) 77 % LYMPHOCYTES RELATIVE PERCENT (BEAKER) (test qzuh=894) 13 % MONOCYTES RELATIVE PERCENT (BEAKER) (test hzsz=465) 10 % EOSINOPHILS RELATIVE PERCENT (BEAKER) (test eimn=900) 0 % BASOPHILS RELATIVE PERCENT (BEAKER) (test fjyt=695) 1 % NEUTROPHILS ABSOLUTE COUNT (BEAKER) (test qwzx=729) 10.10 K/ L 1.80-8.00 LYMPHOCYTES ABSOLUTE COUNT (BEAKER) (test lnkn=099) 1.70 K/ L 1.48-4.50 MONOCYTES ABSOLUTE COUNT (BEAKER) (test behh=638) 1.30 K/ L 0.00-1.30 EOSINOPHILS ABSOLUTE COUNT (BEAKER) (test bsjz=714) 0.00 K/ L 0.00-0.50 BASOPHILS ABSOLUTE COUNT (BEAKER) (test wlvr=040) 0.10 K/ L 0.00-0.20 [id number] 00:08:00* Test Item Value Reference Range Comments PROCALCITONIN (BEAKER) (test yfun=0040) 0.86 ng/mL <0.05 SEPSIS RISK (ng/mL)Low: 0.05-0.50Intermediate: 0.51-2.00High: > =2.01LACTIC ACID, VENOUS, WHOLE [id number] 23:48:00* Test Item Value Reference Range Comments LACTATE BLOOD VENOUS (2) (BEAKER) (test cbbd=7089) 1.3 mmol/L 0.5-2.2 Effective 01/13/2016: Units/Reference Range ChangeNew: 0.5-2.2 mmol/L Previous: 5 -20 mg/[id number] 23:40:00* Test Item Value Reference Range Comments MAGNESIUM (BEAKER) (test jlkp=154) 1.9 mg/dL 1.5-3.0 POCT-GLUCOSE [id number] 21:58:00* Test Item Value Reference Range Comments POC-GLUCOSE METER (BEAKER) (test uyda=1034) 269 mg/dL 70-110 TESTED AT [facility] [id number] [place] [address] POCT-GLUCOSE [id number] 17:39:00* Test Item Value Reference Range Comments POC-GLUCOSE METER (BEAKER) (test atdb=3364) 205 mg/dL 70-110 TESTED AT [facility] [id number] [place] [address] POCT-GLUCOSE [id number] 11:13:00* Test Item Value Reference Range Comments POC-GLUCOSE METER (BEAKER) (test hsja=6093) 153 mg/dL 70-110 TESTED AT [facility] [address] [facility] [address] POCT-GLUCOSE [id number] 05:53:00* Test Item Value Reference Range Comments POC-GLUCOSE METER (BEAKER) (test toze=0922) 195 mg/dL 70-110 TESTED AT [facility] [id number] [place] [address] BASIC METABOLIC [id number] 04:42:00* Test Item Value Reference Range Comments SODIUM (BEAKER) (test hdrp=180) 140 meq/L 135-148 POTASSIUM (BEAKER) (test tjdz=418) 4.0 meq/L 3.5-5.5 CHLORIDE (BEAKER) (test vjgc=670) 99 meq/L 98-106 CO2 (BEAKER) (test jjvw=116) 26 meq/L 20-31 BLOOD UREA NITROGEN (BEAKER) (test licj=953) 25 mg/dL 10-26 CREATININE (BEAKER) (test lkcw=675) 5.02 mg/dL 0.50-1.20 GLUCOSE RANDOM (BEAKER) (test vcwu=265) 196 mg/dL 70-110 CALCIUM (BEAKER) (test vqxw=968) 9.2 mg/dL 8.5-10.5 EGFR (BEAKER) (test pdyw=6762) 12 mL/min/1.73 sq m ESTIMATED GFR IS NOT ACCURATE CREATININE CLEARANCE IN PREDICTING GLOMERULAR FILTRATION RATE. ESTIMATED GFR IS NOT APPLICABLE FOR DIALYSIS PATIENTS. VANCOMYCIN LEVEL, [id number] 04:38:00* Test Item Value Reference Range Comments VANCOMYCIN RANDOM (BEAKER) (test pmsi=894) 24.8 ug/mL Reference Range: No NormalsRandom vancomycin level with AM labs.CBC W/PLT COUNT & AUTO [id number] 04:03:00* Test Item Value Reference Range Comments WHITE BLOOD CELL COUNT (BEAKER) (test ugqf=606) 9.9 K/ L 4.0-10.0 RED BLOOD CELL COUNT (BEAKER) (test vwgf=407) 3.45 M/ L 4.20-5.80 HEMOGLOBIN (BEAKER) (test boqt=549) 10.4 GM/DL 13.0-16.8 HEMATOCRIT (BEAKER) (test ourk=099) 32.3 % 40.0-50.0 MEAN CORPUSCULAR VOLUME (BEAKER) (test bnqk=874) 93.8 fL 82.0-98.0 MEAN CORPUSCULAR HEMOGLOBIN (BEAKER) (test vxpf=929) 30.3 pg 27.0-33.0 MEAN CORPUSCULAR HEMOGLOBIN CONC (BEAKER) (test qejx=288) 32.3 GM/DL 32.0- 36.0 RED CELL DISTRIBUTION WIDTH (BEAKER) (test ziar=104) 20.0 % 12.0-15.0 PLATELET COUNT (BEAKER) (test iibi=143) 441 K/CU MM 150-430 MEAN PLATELET VOLUME (BEAKER) (test zzpu=338) 8.2 fL 6.5-10.5 NUCLEATED RED BLOOD CELLS (BEAKER) (test dgdt=687) 0 /100 WBC 0-0 NEUTROPHILS RELATIVE PERCENT (BEAKER) (test safb=821) 70 % LYMPHOCYTES RELATIVE PERCENT (BEAKER) (test qtfz=061) 16 % MONOCYTES RELATIVE PERCENT (BEAKER) (test ophk=422) 11 % EOSINOPHILS RELATIVE PERCENT (BEAKER) (test obrm=982) 3 % BASOPHILS RELATIVE PERCENT (BEAKER) (test fykf=737) 1 % NEUTROPHILS ABSOLUTE COUNT (BEAKER) (test rlso=373) 6.90 K/ L 1.80-8.00 LYMPHOCYTES ABSOLUTE COUNT (BEAKER) (test wxye=386) 1.60 K/ L 1.48-4.50 MONOCYTES ABSOLUTE COUNT (BEAKER) (test skgs=170) 1.10 K/ L 0.00-1.30 EOSINOPHILS ABSOLUTE COUNT (BEAKER) (test ymit=041) 0.30 K/ L 0.00-0.50 BASOPHILS ABSOLUTE COUNT (BEAKER) (test ejgd=625) 0.10 K/ L 0.00-0.20 BLOOD [id number] 22:00:00* Test Item Value Reference Range Comments CULTURE (BEAKER) (test xwqm=2046) No growth in 5 days POCT-GLUCOSE [id number] 21:33:00* Test Item Value Reference Range Comments POC-GLUCOSE METER (BEAKER) (test vhng=8498) 223 mg/dL 70-110 TESTED AT [facility] [address] [facility] [address] POCT-GLUCOSE [id number] 16:31:00* Test Item Value Reference Range Comments POC-GLUCOSE METER (BEAKER) (test bkcz=7579) 196 mg/dL 70-110 TESTED AT [facility] [address] [facility] [address] POCT-GLUCOSE [id number] 11:35:00* Test Item Value Reference Range Comments POC-GLUCOSE METER (BEAKER) (test wflx=7529) 159 mg/dL 70-110 TESTED AT [facility] [address] [facility] [address] TISSUE [id number] 10:39:00Surgical Pathology Report Case: [id number] Authorizing Provider: Zhen Peterson MD Collected: 05/12/2017 0858 Ordering Location: [facility] - Perioperative Received: 05/12/2017 1033 Services Pathologist: Vimal Hanson MD Specimen: Clavicle, Left, left clavicular head CLAVICULAR HEAD, LEFT, DEBRIDEMENT- ACUTE AND CHRONIC OSTEOMYELITIS WITH GRANULATION TISSUE- NEGATIVE FOR MALIGNANCY Signing Pathologist Direct Phone Line: [phone] signed by Vimal Hanson MD on 05/17/2017 at 10:39 [id number]; [id number] abscess; debridement and I&D of sternumLeft clavicleThe instrument, paperwork, container, and cassette all read [id number].Received in a container of formalin with the patient's name (Colton) and medical record number.Specimen A: Received in formalin labeled as "left clavicle tissue" are two pink-trevino segments of bone aggregating to 1.1 x 1.0 x 0.3 cm. The specimen is totally submitted in cassette A1 for processing after decalcification. JF/ew POCT-GLUCOSE [id number] 05:54:00* Test Item Value Reference Range Comments POC-GLUCOSE METER (BEAKER) (test lmhb=9493) 136 mg/dL 70-110 TESTED AT [facility] [address] [facility] [address] BASIC METABOLIC [id number] 04:56:00* Test Item Value Reference Range Comments SODIUM (BEAKER) (test lvls=844) 136 meq/L 135-148 POTASSIUM (BEAKER) (test lytj=393) 4.2 meq/L 3.5-5.5 CHLORIDE (BEAKER) (test idlg=482) 97 meq/L 98-106 CO2 (BEAKER) (test lepx=484) 25 meq/L 20-31 BLOOD UREA NITROGEN (BEAKER) (test egjc=417) 35 mg/dL 10-26 CREATININE (BEAKER) (test zscl=965) 6.55 mg/dL 0.50-1.20 GLUCOSE RANDOM (BEAKER) (test wgsg=392) 133 mg/dL 70-110 CALCIUM (BEAKER) (test ligv=216) 9.0 mg/dL 8.5-10.5 EGFR (BEAKER) (test eflf=3812) 9 mL/min/1.73 sq m ESTIMATED GFR IS NOT ACCURATE CREATININE CLEARANCE IN PREDICTING GLOMERULAR FILTRATION RATE. ESTIMATED GFR IS NOT APPLICABLE FOR DIALYSIS PATIENTS. CBC W/PLT COUNT & AUTO [id number] 04:22:00* Test Item Value Reference Range Comments WHITE BLOOD CELL COUNT (BEAKER) (test tzsk=671) 9.6 K/ L 4.0-10.0 RED BLOOD CELL COUNT (BEAKER) (test ollw=693) 3.27 M/ L 4.20-5.80 HEMOGLOBIN (BEAKER) (test xjkb=227) 10.0 GM/DL 13.0-16.8 HEMATOCRIT (BEAKER) (test txev=050) 31.0 % 40.0-50.0 MEAN CORPUSCULAR VOLUME (BEAKER) (test eflr=245) 94.6 fL 82.0-98.0 MEAN CORPUSCULAR HEMOGLOBIN (BEAKER) (test lano=082) 30.4 pg 27.0-33.0 MEAN CORPUSCULAR HEMOGLOBIN CONC (BEAKER) (test glei=467) 32.2 GM/DL 32.0- 36.0 RED CELL DISTRIBUTION WIDTH (BEAKER) (test rbbb=860) 19.9 % 12.0-15.0 PLATELET COUNT (BEAKER) (test jscf=125) 439 K/CU MM 150-430 MEAN PLATELET VOLUME (BEAKER) (test kahz=232) 8.3 fL 6.5-10.5 NUCLEATED RED BLOOD CELLS (BEAKER) (test wyak=427) 0 /100 WBC 0-0 NEUTROPHILS RELATIVE PERCENT (BEAKER) (test trwk=334) 65 % LYMPHOCYTES RELATIVE PERCENT (BEAKER) (test edct=432) 19 % MONOCYTES RELATIVE PERCENT (BEAKER) (test zjic=254) 12 % EOSINOPHILS RELATIVE PERCENT (BEAKER) (test gfhs=178) 4 % BASOPHILS RELATIVE PERCENT (BEAKER) (test vhrf=447) 0 % NEUTROPHILS ABSOLUTE COUNT (BEAKER) (test gewg=524) 6.20 K/ L 1.80-8.00 LYMPHOCYTES ABSOLUTE COUNT (BEAKER) (test bcdv=294) 1.90 K/ L 1.48-4.50 MONOCYTES ABSOLUTE COUNT (BEAKER) (test cnrm=025) 1.10 K/ L 0.00-1.30 EOSINOPHILS ABSOLUTE COUNT (BEAKER) (test aieq=739) 0.40 K/ L 0.00-0.50 BASOPHILS ABSOLUTE COUNT (BEAKER) (test pwvv=384) 0.00 K/ L 0.00-0.20 CT, [id number] 02:26:00FINAL REPORT CLINICAL HISTORY: Previous diagnosis of left iliopsoas abscess FINDINGS: Multiple axial images of the abdomen and pelvis were performed after the uncomplicated administration of IV contrast. Oral contrast was given. This exam was performed according to our departmental dose-optimization program, which includes automated exposure control, adjustment of the mA and/or kV according to patient size and/or use of the iterative reconstruction technique. Comparison : May 10, 2017 Lower chest: Atelectasis versus [...] osteonecrosis cannot be excluded. IMPRESSION: Redemonstrated, ill-defined rim- enhancing hypodensity in the left iliopsoas muscle, now [...] be performed, if indicated. Signed: Anson Boo MDReport Verified Date/Time: 02/2017 02:26:37 Reading Location: [address] Reading Room - GLUCOSE [id number] 22:15:00* Test Item Value Reference Range Comments POC-GLUCOSE METER (BEAKER) (test osgv=5548) 248 mg/dL 70-110 TESTED AT [facility] [address] [facility] [address] POCT-GLUCOSE [id number] 15:49:00* Test Item Value Reference Range Comments POC-GLUCOSE METER (BEAKER) (test upac=5363) 277 mg/dL 70-110 TESTED AT [facility] [address] [place] [address] POCT-GLUCOSE [id number] 13:07:00* Test Item Value Reference Range Comments POC-GLUCOSE METER (BEAKER) (test obhy=1355) 218 mg/dL 70-110 TESTED AT [facility] [address] [facility] [address] [id number] 10:53:00* Test Item Value Reference Range Comments PARTIAL THROMBOPLASTIN TIME (BEAKER) (test mrbg=525) 74.3 seconds 23.2-36.1 POCT-GLUCOSE [id number] 10:29:00* Test Item Value Reference Range Comments POC-GLUCOSE METER (BEAKER) (test yurn=9940) 201 mg/dL 70-110 TESTED AT [facility] [address] [facility] [address] BLOOD [id number] 08:18:00* Test Item Value Reference Range Comments CULTURE (BEAKER) (test yesa=0367) From Aerobic Bottle Only Staphylococcus aureusSame organism has been isolated from culture(s) of the same body site collected on a prior date. Repeat susceptibility testing performed only after consultation with the clinical microbiology laboratory.Methicillin resistant Staphylococcus aureus GRAM STAIN RESULT (BEAKER) (test tbhg=7475) From aerobic bottle only: gram positive cocci in pairs and clusters BLOOD [id number] 08:16:00* Test Item Value Reference Range Comments CULTURE (BEAKER) (test uxre=2388) No growth to date CULTURE (BEAKER) (test lsvs=2166) STAPHYLOCOCCUS AUREUS From Aerobic Bottle Only Staphylococcus aureusMethicillin Resistant Staphylococcus aureus isolated. Clindamycin (test code=10) Erythromycin (test code=4) Linezolid (test code=40) Oxacillin (test code=14) Rifampin (test code=43) Tetracycline (test code=2) Trimethoprim + Sulfamethoxazole (test code=47) Vancomycin (test code=13) GRAM STAIN RESULT (BEAKER) (test jcvv=9142) From aerobic bottle only: gram positive cocci in clusters ANAEROBIC [id number] 08:01:00* Test Item Value Reference Range Comments CULTURE (BEAKER) (test ysfe=6801) No anaerobes isolated ANAEROBIC [id number] 08:01:00* Test Item Value Reference Range Comments CULTURE (BEAKER) (test wdxj=8517) No anaerobes isolated POCT-GLUCOSE [id number] 05:51:00* Test Item Value Reference Range Comments POC-GLUCOSE METER (BEAKER) (test fqti=4138) 239 mg/dL 70-110 TESTED AT [facility] [address] [facility] [address] BASIC METABOLIC [id number] 04:42:00* Test Item Value Reference Range Comments SODIUM (BEAKER) (test iban=918) 139 meq/L 135-148 POTASSIUM (BEAKER) (test lqml=784) 3.9 meq/L 3.5-5.5 CHLORIDE (BEAKER) (test rtak=243) 98 meq/L 98-106 CO2 (BEAKER) (test oiwl=491) 28 meq/L 20-31 BLOOD UREA NITROGEN (BEAKER) (test icys=018) 24 mg/dL 10-26 CREATININE (BEAKER) (test tzqq=505) 4.97 mg/dL 0.50-1.20 GLUCOSE RANDOM (BEAKER) (test ximy=583) 232 mg/dL 70-110 CALCIUM (BEAKER) (test gvzj=881) 9.0 mg/dL 8.5-10.5 EGFR (BEAKER) (test cavu=7103) 13 mL/min/1.73 sq m ESTIMATED GFR IS NOT ACCURATE CREATININE CLEARANCE IN PREDICTING GLOMERULAR FILTRATION RATE. ESTIMATED GFR IS NOT APPLICABLE FOR DIALYSIS PATIENTS. PT/[id number] 04:33:00* Test Item Value Reference Range Comments PROTIME (BEAKER) (test nbtl=224) 14.2 seconds 11.8-14.4 INR (BEAKER) (test hwrs=332) 1.1 1.2-1.5 PARTIAL THROMBOPLASTIN TIME (BEAKER) (test csyj=282) 101.0 seconds 23.2-36.1 RECOMMENDED COUMADIN/WARFARIN INR THERAPY RANGESSTANDARD DOSE: 2.0 - 3.0 Includes: PROPHYLAXIS for venous thrombosis, systemic embolization; TREATMENT for venous thrombosis and/or pulmonary embolus.HIGH RISK: Target INR is 2.5-3.5 for patients with mechanical heart valves.CBC W/PLT COUNT & AUTO [id number] 04:22:00* Test Item Value Reference Range Comments WHITE BLOOD CELL COUNT (BEAKER) (test beyo=949) 9.8 K/ L 4.0-10.0 RED BLOOD CELL COUNT (BEAKER) (test xqof=262) 3.38 M/ L 4.20-5.80 HEMOGLOBIN (BEAKER) (test ycyq=719) 10.1 GM/DL 13.0-16.8 HEMATOCRIT (BEAKER) (test uzfb=574) 32.2 % 40.0-50.0 MEAN CORPUSCULAR VOLUME (BEAKER) (test rjdt=426) 95.2 fL 82.0-98.0 MEAN CORPUSCULAR HEMOGLOBIN (BEAKER) (test bwzv=297) 30.0 pg 27.0-33.0 MEAN CORPUSCULAR HEMOGLOBIN CONC (BEAKER) (test wpep=972) 31.5 GM/DL 32.0- 36.0 RED CELL DISTRIBUTION WIDTH (BEAKER) (test gzoh=584) 20.4 % 12.0-15.0 PLATELET COUNT (BEAKER) (test njay=392) 427 K/CU MM 150-430 MEAN PLATELET VOLUME (BEAKER) (test jtjo=817) 8.4 fL 6.5-10.5 NUCLEATED RED BLOOD CELLS (BEAKER) (test hpxt=537) 0 /100 WBC 0-0 NEUTROPHILS RELATIVE PERCENT (BEAKER) (test vvwo=257) 66 % LYMPHOCYTES RELATIVE PERCENT (BEAKER) (test zeax=241) 20 % MONOCYTES RELATIVE PERCENT (BEAKER) (test ssif=287) 9 % EOSINOPHILS RELATIVE PERCENT (BEAKER) (test gndr=510) 5 % BASOPHILS RELATIVE PERCENT (BEAKER) (test ucoy=603) 0 % NEUTROPHILS ABSOLUTE COUNT (BEAKER) (test pmpo=831) 6.50 K/ L 1.80-8.00 LYMPHOCYTES ABSOLUTE COUNT (BEAKER) (test jjjc=072) 2.00 K/ L 1.48-4.50 MONOCYTES ABSOLUTE COUNT (BEAKER) (test moty=663) 0.90 K/ L 0.00-1.30 EOSINOPHILS ABSOLUTE COUNT (BEAKER) (test lhcy=619) 0.50 K/ L 0.00-0.50 BASOPHILS ABSOLUTE COUNT (BEAKER) (test wfsb=571) 0.00 K/ L 0.00-0.20 POCT-GLUCOSE [id number] 20:45:00* Test Item Value Reference Range Comments POC-GLUCOSE METER ([facility]) (test psir=5092) 264 mg/dL 70-110 TESTED AT [place] [id number] POCT-GLUCOSE [id number] 20:30:00* Test Item Value Reference Range Comments POC-GLUCOSE METER ([facility]) (test jbtq=1649) > mg/dL 70-110 OUTSIDE MEASURING RANGETESTED AT [place] [address] POCT-GLUCOSE [id number] 16:51:00* Test Item Value Reference Range Comments POC-GLUCOSE METER ([facility]) (test ywvx=8827) 327 mg/dL 70-110 Verify with Lab draw/TESTED AT [place] [address] [id number] 16:45:00* Test Item Value Reference Range Comments PARTIAL THROMBOPLASTIN TIME (BEAKER) (test yuam=401) 73.4 seconds 23.2-36.1 SURGICALLY OBTAINED CULTURE + GRAM [id number] 12:02:00* Test Item Value Reference Range Comments CULTURE (BEAKER) (test utbe=8250) <1+ Staphylococcus aureusSame organism has been isolated from culture(s) of the same body site and collection date. Repeat susceptibility testing performed only after consultation with the clinical microbiology laboratory. GRAM STAIN RESULT (BEAKER) (test zdjf=1236) <1+ White blood cells seen GRAM STAIN RESULT (BEAKER) (test rsih=176792) No organisms seen SURGICALLY OBTAINED CULTURE + GRAM [id number] 12:00:00* Test Item Value Reference Range Comments CULTURE (BEAKER) (test fxzd=8494) 1+ Staphylococcus aureusMethicillin Resistant Staphylococcus aureus isolated. GRAM STAIN RESULT (BEAKER) (test rdou=4812) <1+ White blood cells seen GRAM STAIN RESULT (BEAKER) (test qolb=024686) No organisms seen POCT-GLUCOSE [id number] 11:56:00* Test Item Value Reference Range Comments POC-GLUCOSE METER (BEAKER) (test rydj=3250) 246 mg/dL 70-110 TESTED AT [address] [address] [id number] 10:09:00* Test Item Value Reference Range Comments PARTIAL THROMBOPLASTIN TIME (BEAKER) (test esii=923) 79.7 seconds 23.2-36.1 BLOOD [id number] 09:58:00* Test Item Value Reference Range Comments CULTURE (BEAKER) (test zipm=0849) From Aerobic Bottle Only Coagulase negative Staphylococcus GRAM STAIN RESULT (BEAKER) (test jsqn=9667) From aerobic bottle only: gram positive cocci in clusters POCT-GLUCOSE [id number] 06:15:00* Test Item Value Reference Range Comments POC-GLUCOSE METER (BEAKER) (test mxfo=2273) 232 mg/dL 70-110 TESTED AT [address] [address] BASIC METABOLIC [id number] 05:25:00* Test Item Value Reference Range Comments SODIUM (BEAKER) (test wcyo=264) 138 meq/L 135-148 POTASSIUM (BEAKER) (test vlxl=228) 4.6 meq/L 3.5-5.5 CHLORIDE (BEAKER) (test xprn=401) 94 meq/L 98-106 CO2 (BEAKER) (test gccs=003) 29 meq/L 20-31 BLOOD UREA NITROGEN (BEAKER) (test emta=902) 49 mg/dL 10-26 CREATININE (BEAKER) (test xjop=526) 8.25 mg/dL 0.50-1.20 GLUCOSE RANDOM (BEAKER) (test gxkv=824) 206 mg/dL 70-110 CALCIUM (BEAKER) (test xgks=539) 9.2 mg/dL 8.5-10.5 EGFR (BEAKER) (test qexs=5910) 7 mL/min/1.73 sq m ESTIMATED GFR IS NOT ACCURATE CREATININE CLEARANCE IN PREDICTING GLOMERULAR FILTRATION RATE. ESTIMATED GFR IS NOT APPLICABLE FOR DIALYSIS PATIENTS. [id number] 05:24:00* Test Item Value Reference Range Comments MAGNESIUM (BEAKER) (test kjwo=285) 2.3 mg/dL 1.5-3.0 CBC W/PLT COUNT & AUTO [id number] 04:51:00* Test Item Value Reference Range Comments WHITE BLOOD CELL COUNT (BEAKER) (test oonz=626) 11.1 K/ L 4.0-10.0 RED BLOOD CELL COUNT (BEAKER) (test hzqt=567) 3.35 M/ L 4.20-5.80 HEMOGLOBIN (BEAKER) (test wfmg=278) 10.1 GM/DL 13.0-16.8 HEMATOCRIT (BEAKER) (test eyrx=571) 32.0 % 40.0-50.0 MEAN CORPUSCULAR VOLUME (BEAKER) (test rymp=999) 95.7 fL 82.0-98.0 MEAN CORPUSCULAR HEMOGLOBIN (BEAKER) (test ctxa=007) 30.2 pg 27.0-33.0 MEAN CORPUSCULAR HEMOGLOBIN CONC (BEAKER) (test ftpv=604) 31.6 GM/DL 32.0- 36.0 RED CELL DISTRIBUTION WIDTH (BEAKER) (test ujuy=846) 20.7 % 12.0-15.0 PLATELET COUNT (BEAKER) (test cwdl=859) 381 K/CU MM 150-430 MEAN PLATELET VOLUME (BEAKER) (test jadp=896) 8.7 fL 6.5-10.5 NUCLEATED RED BLOOD CELLS (BEAKER) (test oyrn=899) 0 /100 WBC 0-0 NEUTROPHILS RELATIVE PERCENT (BEAKER) (test koow=845) 67 % LYMPHOCYTES RELATIVE PERCENT (BEAKER) (test yfkd=334) 19 % MONOCYTES RELATIVE PERCENT (BEAKER) (test osni=595) 9 % EOSINOPHILS RELATIVE PERCENT (BEAKER) (test qsig=790) 5 % BASOPHILS RELATIVE PERCENT (BEAKER) (test poyh=053) 0 % NEUTROPHILS ABSOLUTE COUNT (BEAKER) (test gohm=225) 7.40 K/ L 1.80-8.00 LYMPHOCYTES ABSOLUTE COUNT (BEAKER) (test otbr=859) 2.10 K/ L 1.48-4.50 MONOCYTES ABSOLUTE COUNT (BEAKER) (test jple=208) 1.00 K/ L 0.00-1.30 EOSINOPHILS ABSOLUTE COUNT (BEAKER) (test fpvg=411) 0.50 K/ L 0.00-0.50 BASOPHILS ABSOLUTE COUNT (BEAKER) (test tpaz=786) 0.00 K/ L 0.00-0.20 [id number] 04:35:00* Test Item Value Reference Range Comments PARTIAL THROMBOPLASTIN TIME (BEAKER) (test koyy=459) 52.7 seconds 23.2-36.1 [id number] 22:21:00* Test Item Value Reference Range Comments PARTIAL THROMBOPLASTIN TIME (BEAKER) (test envp=528) 51.1 seconds 23.2-36.1 POCT-GLUCOSE [id number] 20:32:00* Test Item Value Reference Range Comments POC-GLUCOSE METER (BEAKER) (test sgyy=0670) 216 mg/dL 70-110 TESTED AT [facility] [id number] [place] [address] POCT-GLUCOSE [id number] 16:28:00* Test Item Value Reference Range Comments POC-GLUCOSE METER (BEAKER) (test quhq=2231) 236 mg/dL 70-110 TESTED AT [facility] [id number] [place] [address] POCT-GLUCOSE [id number] 13:02:00* Test Item Value Reference Range Comments POC-GLUCOSE METER (BEAKER) (test ceph=0043) 313 mg/dL 70-110 TESTED AT [facility] [id number] [place] [address] [id number] 11:37:00* Test Item Value Reference Range Comments PARTIAL THROMBOPLASTIN TIME (BEAKER) (test fxuz=733) 34.2 seconds 23.2-36.1 POCT-GLUCOSE [id number] 11:34:00* Test Item Value Reference Range Comments POC-GLUCOSE METER (BEAKER) (test htsu=9996) 430 mg/dL 70-110 TESTED AT [facility] [id number] [place] [address] POCT-GLUCOSE [id number] 06:36:00* Test Item Value Reference Range Comments POC-GLUCOSE METER (BEAKER) (test lduq=5320) 228 mg/dL 70-110 TESTED AT [facility] [address] [facility] [address] [id number] 05:34:00* Test Item Value Reference Range Comments MAGNESIUM (BEAKER) (test hptf=329) 1.8 mg/dL 1.5-3.0 BASIC METABOLIC [id number] 05:34:00* Test Item Value Reference Range Comments SODIUM (BEAKER) (test jidn=728) 137 meq/L 135-148 POTASSIUM (BEAKER) (test lwds=746) 4.5 meq/L 3.5-5.5 CHLORIDE (BEAKER) (test zlhf=964) 95 meq/L 98-106 CO2 (BEAKER) (test oszd=430) 28 meq/L 20-31 BLOOD UREA NITROGEN (BEAKER) (test imve=058) 37 mg/dL 10-26 CREATININE (BEAKER) (test csvm=151) 6.56 mg/dL 0.50-1.20 GLUCOSE RANDOM (BEAKER) (test igan=979) 180 mg/dL 70-110 CALCIUM (BEAKER) (test mxxn=032) 8.8 mg/dL 8.5-10.5 EGFR (BEAKER) (test zcch=6538) 9 mL/min/1.73 sq m ESTIMATED GFR IS NOT ACCURATE CREATININE CLEARANCE IN PREDICTING GLOMERULAR FILTRATION RATE. ESTIMATED GFR IS NOT APPLICABLE FOR DIALYSIS PATIENTS. [id number] 05:18:00* Test Item Value Reference Range Comments PARTIAL THROMBOPLASTIN TIME (BEAKER) (test wtbk=574) 77.3 seconds 23.2-36.1 CBC W/PLT COUNT & AUTO [id number] 05:12:00* Test Item Value Reference Range Comments WHITE BLOOD CELL COUNT (BEAKER) (test fstu=842) 13.2 K/ L 4.0-10.0 RED BLOOD CELL COUNT (BEAKER) (test yufa=495) 3.20 M/ L 4.20-5.80 HEMOGLOBIN (BEAKER) (test ydrc=322) 9.7 GM/DL 13.0-16.8 HEMATOCRIT (BEAKER) (test ucoj=821) 30.0 % 40.0-50.0 MEAN CORPUSCULAR VOLUME (BEAKER) (test hlpi=596) 93.7 fL 82.0-98.0 MEAN CORPUSCULAR HEMOGLOBIN (BEAKER) (test fvap=851) 30.3 pg 27.0-33.0 MEAN CORPUSCULAR HEMOGLOBIN CONC (BEAKER) (test gegv=447) 32.4 GM/DL 32.0- 36.0 RED CELL DISTRIBUTION WIDTH (BEAKER) (test lwws=859) 20.1 % 12.0-15.0 PLATELET COUNT (BEAKER) (test qqfw=259) 378 K/CU MM 150-430 MEAN PLATELET VOLUME (BEAKER) (test dvnc=046) 8.8 fL 6.5-10.5 NUCLEATED RED BLOOD CELLS (BEAKER) (test nikq=370) 0 /100 WBC 0-0 NEUTROPHILS RELATIVE PERCENT (BEAKER) (test zjyo=194) 76 % LYMPHOCYTES RELATIVE PERCENT (BEAKER) (test rvhj=745) 14 % MONOCYTES RELATIVE PERCENT (BEAKER) (test kngb=101) 7 % EOSINOPHILS RELATIVE PERCENT (BEAKER) (test qhqz=955) 1 % BASOPHILS RELATIVE PERCENT (BEAKER) (test mgvw=853) 1 % NEUTROPHILS ABSOLUTE COUNT (BEAKER) (test ozft=584) 10.10 K/ L 1.80-8.00 LYMPHOCYTES ABSOLUTE COUNT (BEAKER) (test baas=644) 1.90 K/ L 1.48-4.50 MONOCYTES ABSOLUTE COUNT (BEAKER) (test ojyy=096) 1.00 K/ L 0.00-1.30 EOSINOPHILS ABSOLUTE COUNT (BEAKER) (test exdo=771) 0.20 K/ L 0.00-0.50 BASOPHILS ABSOLUTE COUNT (BEAKER) (test kcef=428) 0.10 K/ L 0.00-0.20 [id number] 22:50:00* Test Item Value Reference Range Comments PARTIAL THROMBOPLASTIN TIME (BEAKER) (test yntj=765) 59.4 seconds 23.2-36.1 POCT-GLUCOSE [id number] 21:53:00* Test Item Value Reference Range Comments POC-GLUCOSE METER (BEAKER) (test oant=5806) 284 mg/dL 70-110 TESTED AT [facility] [address] [facility] [address] POCT-GLUCOSE [id number] 17:27:00* Test Item Value Reference Range Comments POC-GLUCOSE METER (BEAKER) (test tmvo=9931) 219 mg/dL 70-110 TESTED AT [facility] [address] [facility] [address] [id number] 15:39:00* Test Item Value Reference Range Comments PARTIAL THROMBOPLASTIN TIME (BEAKER) (test ffzi=933) 64.8 seconds 23.2-36.1 POCT-GLUCOSE [id number] 12:10:00* Test Item Value Reference Range Comments POC-GLUCOSE METER (BEAKER) (test whrg=8107) 222 mg/dL 70-110 TESTED AT [facility] [address] [facility] [address] POCT-GLUCOSE [id number] 08:19:00* Test Item Value Reference Range Comments POC-GLUCOSE METER (BEAKER) (test wcea=6499) 216 mg/dL 70-110 TESTED AT [facility] [address] [facility] [address] [id number] 05:02:00* Test Item Value Reference Range Comments PHOSPHORUS (BEAKER) (test zxkt=941) 6.8 mg/dL 2.5-4.5 [id number] 05:02:00* Test Item Value Reference Range Comments MAGNESIUM (BEAKER) (test agle=268) 2.1 mg/dL 1.5-3.0 BASIC METABOLIC [id number] 05:02:00* Test Item Value Reference Range Comments SODIUM (BEAKER) (test kepj=028) 135 meq/L 135-148 POTASSIUM (BEAKER) (test hkob=575) 5.6 meq/L 3.5-5.5 CHLORIDE (BEAKER) (test hvvb=288) 95 meq/L 98-106 CO2 (BEAKER) (test jfxa=753) 24 meq/L 20-31 BLOOD UREA NITROGEN (BEAKER) (test whgp=018) 68 mg/dL 10-26 CREATININE (BEAKER) (test evud=771) 9.46 mg/dL 0.50-1.20 GLUCOSE RANDOM (BEAKER) (test pnfa=120) 216 mg/dL 70-110 CALCIUM (BEAKER) (test thct=421) 8.6 mg/dL 8.5-10.5 EGFR (BEAKER) (test oivi=8468) 6 mL/min/1.73 sq m ESTIMATED GFR IS NOT ACCURATE CREATININE CLEARANCE IN PREDICTING GLOMERULAR FILTRATION RATE. ESTIMATED GFR IS NOT APPLICABLE FOR DIALYSIS PATIENTS. [id number] 04:52:00* Test Item Value Reference Range Comments PROTIME (BEAKER) (test ttkr=312) 15.1 seconds 11.8-14.4 INR (BEAKER) (test afrz=525) 1.2 1.2-1.5 PARTIAL THROMBOPLASTIN TIME (BEAKER) (test tvyb=744) 72.2 seconds 23.2-36.1 RECOMMENDED COUMADIN/WARFARIN INR THERAPY RANGESSTANDARD DOSE: 2.0 - 3.0 Includes: PROPHYLAXIS for venous thrombosis, systemic embolization; TREATMENT for venous thrombosis and/or pulmonary embolus.HIGH RISK: Target INR is 2.5-3.5 for patients with mechanical heart valves.CBC W/PLT COUNT & AUTO [id number] 04:49:00* Test Item Value Reference Range Comments WHITE BLOOD CELL COUNT (BEAKER) (test lxmt=456) 9.8 K/ L 4.0-10.0 RED BLOOD CELL COUNT (BEAKER) (test pfog=422) 3.20 M/ L 4.20-5.80 HEMOGLOBIN (BEAKER) (test aumj=867) 9.6 GM/DL 13.0-16.8 HEMATOCRIT (BEAKER) (test tlax=241) 30.0 % 40.0-50.0 MEAN CORPUSCULAR VOLUME (BEAKER) (test eyzn=231) 94.0 fL 82.0-98.0 MEAN CORPUSCULAR HEMOGLOBIN (BEAKER) (test begr=339) 30.2 pg 27.0-33.0 MEAN CORPUSCULAR HEMOGLOBIN CONC (BEAKER) (test xtsk=049) 32.1 GM/DL 32.0- 36.0 RED CELL DISTRIBUTION WIDTH (BEAKER) (test lfvo=059) 20.5 % 12.0-15.0 PLATELET COUNT (BEAKER) (test keap=443) 380 K/CU MM 150-430 MEAN PLATELET VOLUME (BEAKER) (test nfwg=198) 9.1 fL 6.5-10.5 NUCLEATED RED BLOOD CELLS (BEAKER) (test itte=133) 0 /100 WBC 0-0 NEUTROPHILS RELATIVE PERCENT (BEAKER) (test kamf=278) 64 % LYMPHOCYTES RELATIVE PERCENT (BEAKER) (test xslr=432) 22 % MONOCYTES RELATIVE PERCENT (BEAKER) (test dqrh=717) 10 % EOSINOPHILS RELATIVE PERCENT (BEAKER) (test rlwo=276) 4 % BASOPHILS RELATIVE PERCENT (BEAKER) (test weux=222) 1 % NEUTROPHILS ABSOLUTE COUNT (BEAKER) (test ihup=721) 6.20 K/ L 1.80-8.00 LYMPHOCYTES ABSOLUTE COUNT (BEAKER) (test jplh=931) 2.20 K/ L 1.48-4.50 MONOCYTES ABSOLUTE COUNT (BEAKER) (test qdja=035) 1.00 K/ L 0.00-1.30 EOSINOPHILS ABSOLUTE COUNT (BEAKER) (test mmtj=547) 0.40 K/ L 0.00-0.50 BASOPHILS ABSOLUTE COUNT (BEAKER) (test lkgn=486) 0.00 K/ L 0.00-0.20 SPIN/CONCENTRATION [id number] 02:18:00* Test Item Value Reference Range Comments CONCENTRATION CHARGED (BEAKER) (test lgak=5438) Done [id number] 21:52:00* Test Item Value Reference Range Comments PROTIME (BEAKER) (test yyhu=032) 14.8 seconds 11.8-14.4 INR (BEAKER) (test yvao=757) 1.2 1.2-1.5 PARTIAL THROMBOPLASTIN TIME (BEAKER) (test xzth=909) 45.6 seconds 23.2-36.1 RECOMMENDED COUMADIN/WARFARIN INR THERAPY RANGESSTANDARD DOSE: 2.0 - 3.0 Includes: PROPHYLAXIS for venous thrombosis, systemic embolization; TREATMENT for venous thrombosis and/or pulmonary embolus.HIGH RISK: Target INR is 2.5-3.5 for patients with mechanical heart valves.POCT-GLUCOSE [id number] 21:19:00 * Test Item Value Reference Range Comments POC-GLUCOSE METER (BEAKER) (test psfu=0100) 242 mg/dL 70-110 TESTED AT [facility] [address] [facility] [address] POCT-GLUCOSE [id number] 16:29:00* Test Item Value Reference Range Comments POC-GLUCOSE METER (BEAKER) (test ffyq=9715) 229 mg/dL 70-110 TESTED AT [facility] [address] [facility] [address] [id number] 15:29:00* Test Item Value Reference Range Comments PARTIAL THROMBOPLASTIN TIME (BEAKER) (test gtsh=924) 27.7 seconds 23.2-36.1 POCT-GLUCOSE [id number] 12:03:00* Test Item Value Reference Range Comments POC-GLUCOSE METER (BEAKER) (test vkrm=9666) 181 mg/dL 70-110 TESTED AT [facility] [address] [facility] [address] POCT-GLUCOSE [id number] 09:54:00* Test Item Value Reference Range Comments POC-GLUCOSE METER (BEAKER) (test rfbz=6257) 210 mg/dL 70-110 TESTED AT [facility] [address] [facility] [address] [id number] 06:33:00* Test Item Value Reference Range Comments PHOSPHORUS (BEAKER) (test btkt=590) 5.9 mg/dL 2.5-4.5 [id number] 06:33:00* Test Item Value Reference Range Comments MAGNESIUM (BEAKER) (test khrj=218) 2.2 mg/dL 1.5-3.0 BASIC METABOLIC [id number] 06:33:00* Test Item Value Reference Range Comments SODIUM (BEAKER) (test hlny=128) 136 meq/L 135-148 POTASSIUM (BEAKER) (test tscm=276) 5.0 meq/L 3.5-5.5 CHLORIDE (BEAKER) (test sbbf=412) 94 meq/L 98-106 CO2 (BEAKER) (test abzi=412) 24 meq/L 20-31 BLOOD UREA NITROGEN (BEAKER) (test gjsx=346) 58 mg/dL 10-26 CREATININE (BEAKER) (test ealu=992) 8.10 mg/dL 0.50-1.20 GLUCOSE RANDOM (BEAKER) (test artp=035) 241 mg/dL 70-110 CALCIUM (BEAKER) (test agih=706) 9.2 mg/dL 8.5-10.5 EGFR (BEAKER) (test sszk=9263) 7 mL/min/1.73 sq m ESTIMATED GFR IS NOT ACCURATE CREATININE CLEARANCE IN PREDICTING GLOMERULAR FILTRATION RATE. ESTIMATED GFR IS NOT APPLICABLE FOR DIALYSIS PATIENTS. [id number] 06:25:00* Test Item Value Reference Range Comments PARTIAL THROMBOPLASTIN TIME (BEAKER) (test hxnr=290) 98.4 seconds 23.2-36.1 CBC W/PLT COUNT & AUTO [id number] 06:17:00* Test Item Value Reference Range Comments WHITE BLOOD CELL COUNT (BEAKER) (test qqkp=477) 10.7 K/ L 4.0-10.0 RED BLOOD CELL COUNT (BEAKER) (test enrb=260) 3.58 M/ L 4.20-5.80 HEMOGLOBIN (BEAKER) (test johk=969) 10.8 GM/DL 13.0-16.8 HEMATOCRIT (BEAKER) (test qnuv=174) 34.1 % 40.0-50.0 MEAN CORPUSCULAR VOLUME (BEAKER) (test fnma=106) 95.4 fL 82.0-98.0 MEAN CORPUSCULAR HEMOGLOBIN (BEAKER) (test ooqs=356) 30.3 pg 27.0-33.0 MEAN CORPUSCULAR HEMOGLOBIN CONC (BEAKER) (test dmsr=121) 31.8 GM/DL 32.0- 36.0 RED CELL DISTRIBUTION WIDTH (BEAKER) (test wvdp=971) 19.9 % 12.0-15.0 PLATELET COUNT (BEAKER) (test yhpq=914) 422 K/CU MM 150-430 MEAN PLATELET VOLUME (BEAKER) (test jtqu=131) 8.7 fL 6.5-10.5 NUCLEATED RED BLOOD CELLS (BEAKER) (test obor=297) 0 /100 WBC 0-0 NEUTROPHILS RELATIVE PERCENT (BEAKER) (test kfzu=136) 69 % LYMPHOCYTES RELATIVE PERCENT (BEAKER) (test sjyr=968) 18 % MONOCYTES RELATIVE PERCENT (BEAKER) (test mkmf=321) 7 % EOSINOPHILS RELATIVE PERCENT (BEAKER) (test vtpj=629) 6 % BASOPHILS RELATIVE PERCENT (BEAKER) (test lphf=587) 0 % NEUTROPHILS ABSOLUTE COUNT (BEAKER) (test eyys=721) 7.40 K/ L 1.80-8.00 LYMPHOCYTES ABSOLUTE COUNT (BEAKER) (test xilp=915) 1.90 K/ L 1.48-4.50 MONOCYTES ABSOLUTE COUNT (BEAKER) (test bnim=167) 0.80 K/ L 0.00-1.30 EOSINOPHILS ABSOLUTE COUNT (BEAKER) (test jnfj=100) 0.60 K/ L 0.00-0.50 BASOPHILS ABSOLUTE COUNT (BEAKER) (test ureo=463) 0.00 K/ L 0.00-0.20 [id number] 00:56:00* Test Item Value Reference Range Comments PARTIAL THROMBOPLASTIN TIME (BEAKER) (test zfwo=964) 58.8 seconds 23.2-36.1 POCT-GLUCOSE [id number] 21:31:00* Test Item Value Reference Range Comments POC-GLUCOSE METER (BEAKER) (test xaab=0908) 239 mg/dL 70-110 TESTED AT [place] [address] [id number] 18:15:00* Test Item Value Reference Range Comments PARTIAL THROMBOPLASTIN TIME (BEAKER) (test cdsa=052) 46.8 seconds 23.2-36.1 POCT-GLUCOSE [id number] 17:44:00* Test Item Value Reference Range Comments POC-GLUCOSE METER (BEAKER) (test atmj=6167) 240 mg/dL 70-110 TESTED AT [place] [address] POCT-GLUCOSE [id number] 12:47:00* Test Item Value Reference Range Comments POC-GLUCOSE METER (BEAKER) (test olzk=4868) 181 mg/dL 70-110 TESTED AT [place] [address] [id number] 10:55:00* Test Item Value Reference Range Comments PARTIAL THROMBOPLASTIN TIME (BEAKER) (test tbbv=998) 40.6 seconds 23.2-36.1 Prior to initiating heparinPOCT-GLUCOSE [id number] 07:08:00* Test Item Value Reference Range Comments POC-GLUCOSE METER (BEAKER) (test ftqf=6161) 196 mg/dL 70-110 TESTED AT [place] [address] BASIC METABOLIC [id number] 05:16:00* Test Item Value Reference Range Comments SODIUM (BEAKER) (test pkcd=522) 134 meq/L 135-148 POTASSIUM (BEAKER) (test irja=184) 4.7 meq/L 3.5-5.5 CHLORIDE (BEAKER) (test rfjv=907) 96 meq/L 98-106 CO2 (BEAKER) (test lmwi=874) 25 meq/L 20-31 BLOOD UREA NITROGEN (BEAKER) (test zxep=671) 41 mg/dL 10-26 CREATININE (BEAKER) (test jdwm=380) 5.92 mg/dL 0.50-1.20 GLUCOSE RANDOM (BEAKER) (test kbia=788) 238 mg/dL 70-110 CALCIUM (BEAKER) (test dqbl=821) 9.3 mg/dL 8.5-10.5 EGFR (BEAKER) (test thxk=9344) 10 mL/min/1.73 sq m ESTIMATED GFR IS NOT ACCURATE CREATININE CLEARANCE IN PREDICTING GLOMERULAR FILTRATION RATE. ESTIMATED GFR IS NOT APPLICABLE FOR DIALYSIS PATIENTS. [id number] 05:15:00* Test Item Value Reference Range Comments PHOSPHORUS (BEAKER) (test ktyw=681) 4.3 mg/dL 2.5-4.5 [id number] 05:15:00* Test Item Value Reference Range Comments MAGNESIUM (BEAKER) (test kmel=455) 1.9 mg/dL 1.5-3.0 CBC W/PLT COUNT & AUTO [id number] 04:51:00* Test Item Value Reference Range Comments WHITE BLOOD CELL COUNT (BEAKER) (test fbvh=307) 10.7 K/ L 4.0-10.0 RED BLOOD CELL COUNT (BEAKER) (test maun=288) 3.57 M/ L 4.20-5.80 HEMOGLOBIN (BEAKER) (test iylw=433) 10.8 GM/DL 13.0-16.8 HEMATOCRIT (BEAKER) (test ftrz=868) 34.0 % 40.0-50.0 MEAN CORPUSCULAR VOLUME (BEAKER) (test zuur=778) 95.1 fL 82.0-98.0 MEAN CORPUSCULAR HEMOGLOBIN (BEAKER) (test clnl=353) 30.2 pg 27.0-33.0 MEAN CORPUSCULAR HEMOGLOBIN CONC (BEAKER) (test rmcx=022) 31.7 GM/DL 32.0- 36.0 RED CELL DISTRIBUTION WIDTH (BEAKER) (test itkz=001) 20.5 % 12.0-15.0 PLATELET COUNT (BEAKER) (test kzbg=859) 389 K/CU MM 150-430 MEAN PLATELET VOLUME (BEAKER) (test krgs=634) 8.3 fL 6.5-10.5 NUCLEATED RED BLOOD CELLS (BEAKER) (test xpop=378) 0 /100 WBC 0-0 NEUTROPHILS RELATIVE PERCENT (BEAKER) (test irtn=585) 68 % LYMPHOCYTES RELATIVE PERCENT (BEAKER) (test snor=060) 19 % MONOCYTES RELATIVE PERCENT (BEAKER) (test rogp=705) 9 % EOSINOPHILS RELATIVE PERCENT (BEAKER) (test xvmh=440) 5 % BASOPHILS RELATIVE PERCENT (BEAKER) (test mxxl=110) 0 % NEUTROPHILS ABSOLUTE COUNT (BEAKER) (test tkbk=192) 7.20 K/ L 1.80-8.00 LYMPHOCYTES ABSOLUTE COUNT (BEAKER) (test rymp=983) 2.00 K/ L 1.48-4.50 MONOCYTES ABSOLUTE COUNT (BEAKER) (test byfv=421) 0.90 K/ L 0.00-1.30 EOSINOPHILS ABSOLUTE COUNT (BEAKER) (test zqxt=340) 0.50 K/ L 0.00-0.50 BASOPHILS ABSOLUTE COUNT (BEAKER) (test gemz=752) 0.00 K/ L 0.00-0.20 POCT-GLUCOSE [id number] 21:32:00* Test Item Value Reference Range Comments POC-GLUCOSE METER (BEAKER) (test asqg=5942) 297 mg/dL 70-110 TESTED AT [facility] [address] [facility] [address] POCT-GLUCOSE [id number] 17:54:00* Test Item Value Reference Range Comments POC-GLUCOSE METER (BEAKER) (test mzjh=8109) 247 mg/dL 70-110 TESTED AT [facility] [address] [facility] [address] HEPATITIS B SURFACE [id number] 16:14:00* Test Item Value Reference Range Comments HEPATITIS B SURFACE ANTIBODY (BEAKER) (test sxwm=227) < mIU/mL <8.0 POCT-GLUCOSE [id number] 12:17:00* Test Item Value Reference Range Comments POC-GLUCOSE METER (BEAKER) (test xhdo=9865) 123 mg/dL 70-110 TESTED AT [facility] [address] [facility] [address] HEPATITIS B SURFACE [id number] 10:18:00* Test Item Value Reference Range Comments HEPATITIS B SURFACE ANTIGEN (2) (BEAKER) (test jwlx=2952) Nonreactive Nonreactive CREATINE KINASE (CK)2017-05-10 08:09:00* Test Item Value Reference Range Comments CREATINE KINASE TOTAL (BEAKER) (test hral=911) 116 U/L 30-300 [id number] 04:27:00* Test Item Value Reference Range Comments PROCALCITONIN (BEAKER) (test bkns=8034) 2.05 ng/mL <0.05 SEPSIS RISK (ng/mL)Low: 0.05-0.50Intermediate: 0.51-2.00High: > =2.01COMPREHENSIVE METABOLIC [id number] 04:17:00* Test Item Value Reference Range Comments TOTAL PROTEIN (BEAKER) (test ahgg=066) 7.4 gm/dL 6.0-8.5 Specimen slightly hemolyzed ALBUMIN (BEAKER) (test zpfx=7587) 2.8 g/dL 3.5-5.0 Specimen slightly hemolyzed ALKALINE PHOSPHATASE (BEAKER) (test jmvg=338) 127 U/L 30-115 BILIRUBIN TOTAL (BEAKER) (test ahot=842) 0.6 mg/dL 0.1-1.3 Specimen slightly hemolyzed SODIUM (BEAKER) (test oiwc=108) 135 meq/L 135-148 POTASSIUM (BEAKER) (test ymur=419) 5.7 meq/L 3.5-5.5 Specimen slightly hemolyzed CHLORIDE (BEAKER) (test lmfn=914) 97 meq/L 98-106 CO2 (BEAKER) (test amio=671) 22 meq/L 20-31 BLOOD UREA NITROGEN (BEAKER) (test ihrf=014) 50 mg/dL 10-26 CREATININE (BEAKER) (test groq=008) 7.25 mg/dL 0.50-1.20 Specimen slightly hemolyzed GLUCOSE RANDOM (BEAKER) (test xgme=427) 209 mg/dL 70-110 CALCIUM (BEAKER) (test ynfl=513) 9.3 mg/dL 8.5-10.5 AST (SGOT) (BEAKER) (test qwxw=172) 17 U/L 5-40 Specimen slightly hemolyzed ALT (SGPT) (BEAKER) (test wzpp=674) 31 U/L 6-50 Specimen slightly hemolyzed EGFR (BEAKER) (test glor=2841) 8 mL/min/1.73 sq m ESTIMATED GFR IS NOT ACCURATE CREATININE CLEARANCE IN PREDICTING GLOMERULAR FILTRATION RATE. ESTIMATED GFR IS NOT APPLICABLE FOR DIALYSIS PATIENTS. CBC W/PLT COUNT & AUTO [id number] 03:47:00* Test Item Value Reference Range Comments WHITE BLOOD CELL COUNT (BEAKER) (test scgs=411) 12.1 K/ L 4.0-10.0 RED BLOOD CELL COUNT (BEAKER) (test ovet=552) 3.82 M/ L 4.20-5.80 HEMOGLOBIN (BEAKER) (test hqmg=413) 11.6 GM/DL 13.0-16.8 HEMATOCRIT (BEAKER) (test ignr=642) 36.3 % 40.0-50.0 MEAN CORPUSCULAR VOLUME (BEAKER) (test qphl=607) 95.0 fL 82.0-98.0 MEAN CORPUSCULAR HEMOGLOBIN (BEAKER) (test cksv=170) 30.3 pg 27.0-33.0 MEAN CORPUSCULAR HEMOGLOBIN CONC (BEAKER) (test fhwf=244) 31.9 GM/DL 32.0- 36.0 RED CELL DISTRIBUTION WIDTH (BEAKER) (test brsu=009) 20.7 % 12.0-15.0 PLATELET COUNT (BEAKER) (test bbcw=524) 368 K/CU MM 150-430 MEAN PLATELET VOLUME (BEAKER) (test pyht=795) 8.8 fL 6.5-10.5 NUCLEATED RED BLOOD CELLS (BEAKER) (test zwfp=149) 0 /100 WBC 0-0 NEUTROPHILS RELATIVE PERCENT (BEAKER) (test byzp=768) 74 % LYMPHOCYTES RELATIVE PERCENT (BEAKER) (test tihz=022) 16 % MONOCYTES RELATIVE PERCENT (BEAKER) (test ilzs=357) 8 % EOSINOPHILS RELATIVE PERCENT (BEAKER) (test usnr=725) 3 % BASOPHILS RELATIVE PERCENT (BEAKER) (test hsel=093) 0 % NEUTROPHILS ABSOLUTE COUNT (BEAKER) (test peeh=511) 9.00 K/ L 1.80-8.00 LYMPHOCYTES ABSOLUTE COUNT (BEAKER) (test bpng=907) 1.90 K/ L 1.48-4.50 MONOCYTES ABSOLUTE COUNT (BEAKER) (test btch=261) 0.90 K/ L 0.00-1.30 EOSINOPHILS ABSOLUTE COUNT (BEAKER) (test ukhx=223) 0.30 K/ L 0.00-0.50 BASOPHILS ABSOLUTE COUNT (BEAKER) (test aywc=069) 0.00 K/ L 0.00-0.20 POCT-GLUCOSE [id number] 21:00:00* Test Item Value Reference Range Comments POC-GLUCOSE METER (BEAKER) (test jbim=2105) 251 mg/dL 70-110 TESTED AT [facility] [address] [facility] [address] CHEST SINGLE (PORTABLE) [place] [address] Patient Name: HECTOR SILVA MR #: [id number] : 1970 Age/Sex: 47/M Req #: [id number] Adm Physician: NICKI MORALES MD Ordered by: SIMONE JONES MD Report #: [id number] Location: ICU Room/Bed: ICU [facility] ___ Procedure: [id number] DX/CHEST SINGLE (PORTABLE) Exam Date: 05/09/17 Exam Time: 0608 REPORT STATUS: Signed EXAM: Portable chest, AP 1 view DATE: May 09, 2017 Time stamp on exam: 0534 hours INDICATION: Respiratory distress COMPARISON: AP view of the chest May 08, 2017 Preliminary report provided by Dr. Cantu May 09, 2017 at 0707 hours FINDINGS: See impression IMPRESSION: Stable position of endotracheal tube and partially visualized nasal/orogastric tube. No interval change in appearance of the chest. Low inspiration, cardiomegaly and vascular congestion/interstitial edema. Signed by: Dr. Jose Alfredo Cantu M.D. on 05/24/2017 3:18 AM Dictated By: JOSE ALFREDO CANTU MD 7 COPY TO: SIMONE JONES MD CHEST SINGLE (PORTABLE) [place] [address] Patient Name: HECTOR SILVA MR #: [id number] : 1970 Age/Sex: 47/M Req #: [id number] Adm Physician: NICKI MORALES MD Ordered by: SUSAN ARMENTA MD Report #: [id number] Location: ICU Room/Bed: [place] [address] Procedure: [id number] DX/CHEST SINGLE (PORTABLE) Exam Date: 05/08/17 Exam Time: 1700 REPORT STATUS: Signed PROCEDURE: A single AP view of the chest. COMPARISON: [facility], DX, CHEST 2 VIEWS, 05/04/2017, 18:25. INDICATIONS: POST INTUBATION, CODE BLUE FINDINGS: See impression. IMPRESSION: 1. ET tube has distal tip projecting 5.2 cm above the miguel a, at the level of the thoracic inlet. 2. Enlarged cardiac silhouette , central vascular congestion and mild perihilar interstitial edema. 3. Hypoinflated lungs, with left basal atelectasis. No effusion. 4. No acute bony abnormalities. 5. Preliminary report provided by Dr. Kidd 05/08/2017 at 1740 hrs. Dax Kidd M.D. Dictated by: Dax Kidd M.D. on 05/10/2017 at 14:15 Electronically approved by: Dax Kidd M.D. on 05/10/2017 at 14:15 Dictated By: DAX KIDD MD 14 Transcribed By: YOUSIF on 05/10/171414 COPY TO: SUSAN ARMENTA MD CT CHEST WO [place] [address] Patient Name: HECTOR SILVA MR # : [id number] : 1970 Age/Sex: 47/M Req #: [id number] Adm Physician: NICKI MORALES MD Ordered by: NICKI MORALES MD Report #: [id number] Location: [place] [address] Room/Bed: [facility] _ Procedure: [id number] CT/CT CHEST WO Exam Date: 05/05/17 Exam Time: 2047 REPORT STATUS: Signed EXAM: CT CHEST WO DATE: 05/05/2017 4:47 PM Time stamp on exam: 2048 hours INDICATION: Cough, shortness of breath, substernal notch mass COMPARISON: None TECHNIQUE: Multidetector CT scanning of the chest was performed. Coronal and sagittal multiplanar reformations were obtained. Routine protocol performed. IV Contrast: None CTDIvol has been reviewed. It is below the limits set by the Radiation Protocol Committee (RPC). FINDINGS: LUNGS AND AIRWAYS: The trachea and major bronchi are unremarkable. Left lower lobe atelectasis. PLEURA: Trace bilateral pleural effusions. HEART, MEDIASTINUM, VESSELS: Surgical changes of coronary artery bypass. Mild cardiac enlargement. No abnormal pericardial effusion. No mediastinal lymphadenopathy. UPPER ABDOMEN: No acute findings. MUSCULOSKELETAL: There is a mass measuring approximately 6.5 x 7 x 5 cm centered around the left proximal clavicle with associated internal air and osseous destruction of the proximal left clavicle and proximal sternum. There is superior subluxation of the sternoclavicular joint. IMPRESSION: Left sternoclavicular septic arthritis, osteomyelitis and associated 7 cm abscess. Left lower lobe atelectasis versus pneumonia. Signed by: Dr. Jose Alfredo Cantu M.D. on 05/05/2017 9:21 PM Dictated By: JOSE ALFREDO CANTU MD 20 Transcribed By: RACHAEL on 05/05/172120 COPY TO: NICKI MORALES MD CT ABDOMEN/PELVIS W [place] [address] Patient Name: HECTOR SILVA MR #: [id number] : 1970 Age/Sex: 47/M Req #: [id number] Adm Physician: NICKI MORALES MD Ordered by: CHRISSY BETTS MD Report #: [id number] Location: MED/SURG2 Room/ Bed: [facility] Procedure: [id number] CT/CT ABDOMEN/PELVIS W Exam Date: 05/05/17 Exam Time: 1610 REPORT STATUS: Signed PROCEDURE: CT ABDOMEN AND PELVIS WITH CONTRAST TECHNIQUE : The abdomen and pelvis were scanned utilizing a multidetector helical scanner from the diaphragm to the lesser trochanter after the IV administration of 100 cc of Isovue 370 and the oral administration of dilute Gastrografin. Coronal and sagittal multiplanar reformations were obtained. COMPARISON: [facility], CT, CT ABDOMEN/PELVIS WO, 2015, 19:15. INDICATIONS: LEFT HIP PAIN, ABSCESS, RULE OUT INFECTION FINDINGS: LOWER THORAX: Trace left pleural effusion and associated compressive atelectasis of the left lower lobe. Atelectatic changes in the right lower lobe. Triangular shaped consolidation with air bronchograms in the left lung base (series 2, image 5). Stable cardiomegaly. Atherosclerotic calcification of the coronary arteries and aortic bowel. HEPATOBILIARY: No focal hepatic lesions. No biliary ductal dilatation. Gallbladder is unremarkable. SPLEEN: No splenomegaly. Ill-defined hypodense focus in the anterior lateral spleen (series 2, image 25), which may represent prior infarct. A similar finding is noted in the posterior aspect of the spleen (series 2, image 25). PANCREAS: No focal masses or ductal dilatation. ADRENALS: No adrenal nodules. KIDNEYS/URETERS: Punctate calcifications in the mid to inferior left frontal sinus (series 2, images 43 and 44 and coronal image 70), are felt to represent vascular calcifications rather than nonobstructing calculi. No stones. No hydronephrosis. Mild bilateral perinephric stranding. PELVIC ORGANS/BLADDER : The bladder is moderately distended, but grossly unremarkable. Prostate is unremarkable. PERITONEUM / RETROPERITONEUM: No free air or fluid. LYMPH NODES: No lymphadenopathy. VESSELS: Atherosclerotic calcification of the abdominal aorta and iliac vessels. There is prominent atherosclerotic calcification of the STARLA (for example, coronal image 56). GI TRACT: No bowel dilation or evidence of obstruction. Stomach is moderately distended, but unremarkable.. BONES AND SOFT TISSUES: Increased sclerosis of the left femoral head with irregular shaped lucency (series 2 image 94), which was not present on the prior exam. Mild cortical irregularity in the anteromedial aspect. No acute displaced fracture or dislocation. Degenerative disc changes in the lower thoracic and lumbosacral spine. No acute displaced fracture or dislocation. Moderate swelling of the left iliacus adjacent to the left hip joint extending anteriorly to the iliopsoas (series 2, image 95), with a 0.9 cm peripherally enhancing hypodense lesion. There is a peripherally enhancing fluid collection extending superiorly from anterior to the left hip joint through the left iliacus muscle, which measures approximately 12.9 x 2.1 cm (sagittal image 96 and series 2, images 68-96, and coronal images 50-72). No other fluid collections are identified. Other soft tissues are grossly unremarkable. IMPRESSION: 1. findings consistent with left proximal femur/left hip osteomyelitis and development of adjacent abscess extending superiorly through the left iliacus muscle. The location in the pelvic sidewall does not make it amenable to drainage. 2. Focal consolidation, with air bronchograms in the left lung base may represent atelectasis or pneumonia, in the appropriate clinical setting. 3. Trace left pleural effusion and compressive atelectasis of the left lower lobe. Dax Kidd M.D. Dictated by: Dax Kidd M.D. on 05/05/2017 at 17:52 Electronically approved by: Dax Kidd M.D. on 05/05/2017 at 17:52 Dictated By: DAX KIDD MD 51 Transcribed By: YOUSIF on 05/05/171751 COPY TO: CHRISSY BETTS MD MRI HIP LEFT WO [place] [address] Patient Name: HECTOR SILVA MR # : [id number] : 1970 Age/Sex: 47/M Req #: [id number] Adm Physician: NICKI MORALES MD Ordered by: CHRISSY BETTS MD Report #: [id number] Location: MED/SURG2 Room/Bed: [facility] _ Procedure: [id number] MRI/MRI HIP LEFT WO Exam Date: Exam Time: REPORT STATUS: Signed TECHNIQUE: Magnetic resonance imaging of the LEFT HIP was performed WITHOUT injected contrast. HISTORY: Bacteremia, rule out joint infection, pain, per report for "months " COMPARISON: Left hip radiographs May 04, 2017 FINDINGS: Bone: Patchy bone marrow edema involving the left femoral head/neck and to a lesser degree the adjacent acetabulum. Decreased fatty marrow signal involving the subchondral bone of the left acetabulum and to a lesser extent the adjacent left femoral head/neck. Femoroacetabular Joint: Acetabular labrum: Attenuation of the anterosuperior labrum. Articular Cartilage: Prominent diffuse high-grade to full-thickness cartilage loss. Muscle and tendons: Moderate edema within the visualized iliopsoas muscles, gluteus minimus and to a lesser degree the gluteus medius, gluteus shashi and abductor muscles. Multiple small lobulated fluid collections ( approximately 3) within the visualized iliopsoas muscles, measuring up to 1.6 cm (AP) x 1.7 cm (ML) x 5 cm (CC). Soft tissues: Mild to moderate regional soft tissue edema. IMPRESSION: Constellation of findings compatible with a subacute to early chronic evolving left hip septic arthropathy, adjacent osteomyelitis, myositis and iliopsoas abscesses. Discussed with Dr. Betts via phone on May 05, 2017 at 1719. Signed by: Dr. Moi Calderón M.D. on 05/05/2017 5:22 PM Dictated By: MOI CALDERÓN DO 21 Transcribed By: RACHAEL on 05/05/171721 COPY TO: CHRISSY BETTS MD HIP LEFT 2-3 VW (+/- PELVIS) [place] [address] Patient Name: HECTOR SILVA MR #: [id number] : 1970 Age/Sex: 47/M Req #: [id number] Adm Physician: NICKI MORALES MD Ordered by: NICKI MORALES MD Report #: [id number] Location: MED/SURG2 Room/Bed: [facility] Procedure: [id number] DX/HIP LEFT 2-3 VW (+/- PELVIS) Exam Date: Exam Time: REPORT STATUS: Signed HIP LEFT 2-3 VW (+/- PELVIS) HISTORY: Pain. COMPARISON: Abdominal CT 09/27/2015 FINDINGS: Bones: The cortex outlining the medial aspect of the left acetabulum is not well visualized, decreased compared to the right, and decreased when compared to extended insurance clerk radiograph from CT 09/27/2015. Osseous alignment is within normal limits. Joints: There is increased joint space narrowing of the left hip. Soft tissues: The soft tissues appear unremarkable. IMPRESSION: Increasing joint space narrowing of the left hip with decreased visualization of the cortex of the acetabulum. In the setting of positive blood cultures, this raises concern for septic arthritis. Signed by: DR. Atif Flor MD on 2016 7:26 PM Dictated By: ATIF FLOR MD 25 Transcribed By: RACHAEL on 05/04/171925 COPY TO: NICKI MORALES MD CHEST 2 VIEWS [place] [address] Patient Name: HECTOR SILVA MR #: [id number] : 1970 Age/Sex: 47/M Req #: [id number] Adm Physician: NICKI MORALES MD Ordered by: NICKI MORALES MD Report #: [id number] Location: MED/SURG2 Room /Bed: [facility] Procedure: [id number] DX/CHEST 2 VIEWS Exam Date: 05/04/17 Exam Time: 1854 REPORT STATUS: Signed EXAMINATION: CHEST 2 VIEWS INDICATION: COMPARISON: Chest radiograph 02/19/2017 FINDINGS: PA and lateral views TUBES and LINES: None. LUNGS: Lungs are moderately inflated. Stable left lower lobe scarring and atelectasis. A left basilar opacity slightly inferomedial to the area of scarring on frontal view is not well-visualized on lateral view. Lateral view is limited by body habitus. PLEURA: No pleural effusion or pneumothorax. HEART AND MEDIASTINUM: Stable cardiomegaly and postsurgical changes related to CABG. BONES AND SOFT TISSUES: No acute osseous lesion. Soft tissues are unremarkable. UPPER ABDOMEN: No free air under the diaphragm. IMPRESSION: Left basilar opacity may represent atelectasis or developing consolidation in the appropriate clinical setting. Signed by: DR. Atif Flor MD on 7:20 PM Dictated By: ATIF FLOR MD 19 Transcribed By: RACHAEL on 05/04/171919 COPY TO: NICKI MORALES MD
[2017-10-17] MEDS ORDERED: VANCOMYCIN 1GM/NS 250 ML 250 ML IV ONE (16:15)
[2017-10-17] MEDS ORDERED: PIPERACILLIN/TAZO 2.25 GM 50 ML IV ONE (16:15)
[2017-10-17 18:59] VITALS: BP 127/62
== END 2017-10-17 19:04 | disposition short-term general hospital (02) ==
LOC: FSED 15:17
DX: A49.02 Methicillin resistant Staphylococcus aureus infection, unspecified site (principal); R51 Headache; R26.2 Difficulty in walking, not elsewhere classified; E11.65 Type 2 diabetes mellitus with hyperglycemia; I12.0 Hypertensive chronic kidney disease with stage 5 chronic kidney disease or end stage renal disease; N18.6 End stage renal disease; Z99.2 Dependence on renal dialysis; I25.10 Atherosclerotic heart disease of native coronary artery without angina pectoris; I50.9 Heart failure, unspecified; E78.5 Hyperlipidemia, unspecified
CPT/HCPCS: 80053; 85025; 87040; 99283; J2543; J3370

== ENCOUNTER 2019-04-30 13:45 | Outpatient (RCR) | payer MEDICARE | END 2019-05-11 | LOC: PT 13:45 | PROVIDERS: ATTEND Specialist | DX: M23.92 Unspecified internal derangement of left knee (principal) | CPT/HCPCS: 97139 ==

== ENCOUNTER 2019-06-27 16:00 | Outpatient (RCR) | payer MEDICARE | END 2019-07-11 | LOC: PT 16:00 | PROVIDERS: ATTEND Specialist | DX: M23.92 Unspecified internal derangement of left knee (principal); M25.562 Pain in left knee; M62.81 Muscle weakness (generalized); R26.9 Unspecified abnormalities of gait and mobility; R26.81 Unsteadiness on feet; M25.662 Stiffness of left knee, not elsewhere classified ==

== ENCOUNTER 2019-08-06 17:00 | Outpatient (RCR) | payer MEDICARE | END 2019-08-10 | LOC: PT 17:00 | PROVIDERS: ATTEND Specialist | DX: M23.92 Unspecified internal derangement of left knee (principal); M25.562 Pain in left knee; M62.81 Muscle weakness (generalized); R26.2 Difficulty in walking, not elsewhere classified ==

== ENCOUNTER → 2019-10-15 | Outpatient (CLI) | payer MEDICARE ==
--- NOTE | 2019-10-15 15:27 | Diagnostic Imaging Report ---
EXAMINATION: SP LUMBAR AP LATERAL 2-3VWS INDICATION: Back pain COMPARISON: None FINDINGS: No acute osseous injury. Vertebral body heights are well-maintained. Alignment is anatomic. Minimal multilevel degenerative changes with small osteophyte formation. Diffuse atherosclerotic arterial calcifications. Nonobstructive bowel gas pattern. IMPRESSION: No acute osseous injury. Minimal multilevel degenerative changes. Signed by: Stephanie Santos MD on 10/15/2019 3:25 PM
== END ==
LOC: RAD 13:50
PROVIDERS: ATTEND Internal Medicine
DX: M54.5 Low back pain (principal)
CPT/HCPCS: 72100

== ENCOUNTER 2019-10-23 06:35 | Emergency (ER) | payer MEDICARE ==
[~2019-10-23] VITALS: Ht 170.2 cm; Wt 79.4 kg
[2019-10-23] MEDS ORDERED: LIDOCAINE 4% PATCH TP STA (07:32)
[2019-10-23] MEDS ORDERED: LIDOCAINE 4% PATCH TP ONE (07:38)
[2019-10-23] MEDS ORDERED: HYDROCODONE/APAP 7.5MG-325MG 1 EA TAB PO PRN (07:45)
[2019-10-23] MEDS ORDERED: MORPHINE SULFATE 2 MG/ML SYR 1ML IV STA (07:47)
[2019-10-23] MEDS ORDERED: ONDANSETRON HCL INJ 2MG/ML 2ML 2 MG/ML VIAL IV STA (07:47)
[2019-10-23 08:18] LABS: BASOPHILS % 0.4 % (0.0-1.0); EOSINOPHILS # (AUTO) 0.3 (0.0-0.4); EOSINOPHILS % 3.5 % (0.0-6.0); HEMATOCRIT 33.7 % (38.2-49.6); HEMOGLOBIN 10.2 g/dL (14.0-18.0); LYMPHOCYTES # (AUTO) 1.1 (1.0-3.2); LYMPHOCYTES % 13.5 % (18.0-39.1); MEAN CORPUSCULAR HEMOGLOBIN 28.3 pg (28-32); MEAN CORPUSCULAR HGB CONC 30.3 g/dL (31-35); MEAN CORPUSCULAR VOLUME 93.4 fL (81-99); MONOCYTES # (AUTO) 0.8 (0.2-0.8); MONOCYTES % 10.1 % (4.4-11.3); NEUTROPHILS # (AUTO) 5.7 (2.1-6.9); PLATELET COUNT 332 x10e3/uL (140-360); RED BLOOD COUNT 3.61 x10e6/uL (4.3-5.7); RED CELL DISTRIBUTION WIDTH 18.5 % (11.7-14.4)
[2019-10-23 08:40] LABS: ALBUMIN 2.8 g/dL (3.5-5.0); ALBUMIN/GLOBULIN RATIO 0.6 (0.8-2.0); ANION GAP 19.7 mmol/L (8-16); CALCIUM 8.7 mg/dL (8.4-10.2); CREATININE, SERUM 7.55 mg/dL (0.72-1.25); MAGNESIUM 2.1 MG/DL (1.3-2.1); POTASSIUM 4.7 mmol/L (3.5-5.1)
[2019-10-23 08:46] LABS: CREATINE KINASE MB 3.6 ng/mL (0-5.0)
--- NOTE | 2019-10-23 09:09 | Diagnostic Imaging Report ---
Right upper quadrant abdominal ultrasound Clinical History: Abdominal pain Discussion: Sonographic evaluation of the right upper quadrant of the abdomen is performed. The liver has normal size and measures 18.3 cm in length. The liver echotexture is normal, without focal mass. There is no intra or extrahepatic biliary dilatation. The common bile duct measures 3 mm. The gallbladder has normal appearance, without wall thickening, stones, or pericholecystic fluid. The main portal vein diameter is normal, measuring 7 mm. The pancreatic head, body, and proximal tail demonstrate no abnormality. There is no ascites. The right kidney measures 11.3 cm in length and is normal in size. There is no renal mass, hydronephrosis, or shadowing renal calculus. Segments of the inferior vena cava and aorta visualized demonstrate no abnormality. Impression: 1. Trace right pleural effusion, otherwise, unremarkable right upper quadrant ultrasound. Signed by: Dr. Vimal Bolton MD on 10/23/2019 9:06 AM
--- NOTE | 2019-10-23 09:20 | Diagnostic Imaging Report ---
Exam: Chest one view Clinical history: Shortness of breath Findings: There is moderate cardiomegaly. There is no evidence of pulmonary consolidation, pleural effusion, or pneumothorax. Post median sternotomy changes are noted. Signed by: Dr. Vimal Bolton MD on 10/23/2019 9:18 AM
--- NOTE | 2019-10-23 09:45 | Diagnostic Imaging Report ---
Exam: CT abdomen and pelvis next Clinical history: Renal stone Technique: Helical images of the abdomen and pelvis were obtained without contrast DOSE REDUCTION: The exams was performed according to the departmental dose-optimization program which includes automated exposure control, adjustment of the mA and/or kV according to patient size and/or use of iterative reconstruction technique. Findings: Mild scarring versus atelectasis is noted in the left lung base. The cardiac size is mildly prominent. Extensive atherosclerotic calcifications of the coronary vessels are noted. The liver, spleen, pancreas, adrenal glands, and kidneys are unremarkable. Calcified stones are noted in the dependent surface of the gallbladder without CT evidence of acute cholecystitis. The small and large bowels are normal in caliber without evidence of obstruction. There is no evidence of lymphadenopathy or free fluid. The aorta and IVC are normal in caliber. Extensive atherosclerotic calcifications of the abdominal and pelvic vasculatures are noted. The bladder, prostate, and seminal vesicles are unremarkable. Bony erosive changes as noted in the left femoral head and acetabulum with surrounding joint effusion. Septic arthritis cannot be excluded. Impression: 1. No CT evidence of nephrolithiasis. 2. Cholelithiasis without CT evidence of acute cholecystitis. 3. Mild cardiomegaly. 4. Bony erosive changes involving the left hip joint with joint effusion. Clinical correlation is recommended to rule out septic arthritis. Signed by: Dr. Vimal Bolton MD on 10/23/2019 9:42 AM
--- NOTE | 2019-10-23 10:14 | NUR ---
PT TALKED WITH DAUGHTER ON CHG PHONE TO HAVE HER PICK HIM UP. PT PUTTING MOUTH ALL OVER PHONE, KISSING PHONE WITH MOUTH. ASKED TO NOT PUT MOUTH ONTO PHONE D/T LG, PT STATES UNDERSTANDING. PT HOWEVER STATES HE DOES NOT WANT TO GO HOME AND WILL NOT GET INTO W/C AFTER DC EXPLAINED AND IV D/C'D. G NOTIFIED AND WILL TALK WITH PT. MD AND HR REPRESENTATIVE NOTIFIED PT STATES NO ONE CAME EXCEPT NURSE TO EXPLAIN HIS LABS AND PLAN OF CARE OR DC/
== END 2019-10-23 10:34 | disposition home or self-care (01) ==
LOC: ER 06:35
DX: S39.012A Strain of muscle, fascia and tendon of lower back, initial encounter (principal); J90 Pleural effusion, not elsewhere classified; I12.0 Hypertensive chronic kidney disease with stage 5 chronic kidney disease or end stage renal disease; E11.22 Type 2 diabetes mellitus with diabetic chronic kidney disease; N18.6 End stage renal disease; Z99.2 Dependence on renal dialysis; I73.9 Peripheral vascular disease, unspecified; Z95.1 Presence of aortocoronary bypass graft
CPT/HCPCS: 36415; 71045; 74176; 76705; 80053; 82550; 82553; 83690; 83735; 84484; 85025; 99284

== ENCOUNTER → 2021-06-10 | Outpatient (CLI) | payer MEDICARE ==
[~2021-06-10] MED LIST changes: +ELIQUIS5 MG PO; +IOPAMIDOL 370 MG/ML 200 ML INFUS..BTL INJ ONE; +LOSARTAN POTASS50 MG PO; +METOPROLOL SUCC25 MG PO; +SODIUM CHLORIDE 0.9% 50ML 50 ML ONE
== END ==
LOC: MRI 10:33
PROVIDERS: ATTEND Internal Medicine
DX: M00.852 Arthritis due to other bacteria, left hip (principal)
CPT/HCPCS: 73701; Q9967

== ENCOUNTER 2021-06-12 11:00 | Inpatient (IN) | payer MEDICARE ==
[~2021-06-12] VITALS: Ht 170.2 cm; Wt 88.5 kg
[~2021-06-12 11:00] MED LIST changes: -ELIQUIS5 MG PO; -IOPAMIDOL 370 MG/ML 200 ML INFUS..BTL INJ ONE; -LOSARTAN POTASS50 MG PO; -METOPROLOL SUCC25 MG PO; -SODIUM CHLORIDE 0.9% 50ML 50 ML ONE
[2021-06-12] MEDS ORDERED: HYDROCODONE/APAP 7.5MG-325MG 1 EA TAB PO PRN (11:30)
[2021-06-12] MEDS ORDERED: ACETAMINOPHEN 325 MG TAB PO PRN (11:30)
[2021-06-12 12:00] VITALS: BP 126/69
[2021-06-12] MEDS ORDERED: LOSARTAN POTASS50 MG PO (12:48)
[2021-06-12] MEDS ORDERED: ELIQUIS5 MG PO (12:48)
[2021-06-12] MEDS ORDERED: METOPROLOL SUCC25 MG PO (12:54)
[2021-06-12] MEDS ORDERED: RENVELA0.8 GM PO (12:54)
[2021-06-12] MEDS: INSULIN REGULAR, HUMAN 100 UNIT/1 ML SQ SCH ×3 (14:00→19:53)
[2021-06-12 14:01] VITALS: BP 126/69
[2021-06-12 14:18] VITALS: BP 126/69
[2021-06-12 14:29] LABS: BASOPHILS # (AUTO) 0.1 (0.0-0.1); BASOPHILS % 0.4 % (0.0-1.0); EOSINOPHILS # (AUTO) 0.1 (0.0-0.4); EOSINOPHILS % 0.3 % (0.0-6.0); HEMATOCRIT 35.5 % (38.2-49.6); HEMOGLOBIN 10.5 g/dL (14.0-18.0); LYMPHOCYTES # (AUTO) 1.2 (1.0-3.2); LYMPHOCYTES % 4.6 % (18.0-39.1); MEAN CORPUSCULAR HEMOGLOBIN 30.8 pg (28-32); MEAN CORPUSCULAR HGB CONC 29.6 g/dL (31-35); MEAN CORPUSCULAR VOLUME 104.1 fL (81-99); MONOCYTES # (AUTO) 0.8 (0.2-0.8); MONOCYTES % 3.1 % (4.4-11.3); NEUTROPHILS % 89.6 % (38.7-80.0); PLATELET COUNT 451 x10e3/uL (140-360); RED BLOOD COUNT 3.41 x10e6/uL (4.3-5.7); RED CELL DISTRIBUTION WIDTH 15.8 % (11.7-14.4)
[2021-06-12 16:00] VITALS: BP 154/63
[2021-06-12] MEDS: CEFEPIME 1 GM in SODIUM CHLORIDE 0.9% 50ML 50 ML IV SCH (16:07)
[2021-06-12 16:18] LABS: ALBUMIN/GLOBULIN RATIO 0.4 (0.8-2.0); ANION GAP 17.3 mmol/L (8-16); CALCIUM 8.6 mg/dL (8.4-10.2); CREATININE, SERUM 5.15 mg/dL (0.72-1.25); POTASSIUM 3.3 mmol/L (3.5-5.1)
[2021-06-12] MEDS: CARVEDILOL 12.5 MG TAB PO SCH (17:17)
[2021-06-12] MEDS: ENOXAPARIN 30 MG/0.3 ML SYR SC SCH (17:18)
[2021-06-12] MEDS: Vancomycin IV 1 GM in SODIUM CHLORIDE 0.9% 250ML 250 ML IV SCH (17:18)
[2021-06-12] MEDS ORDERED: SODIUM CHLORIDE 0.9% 250ML 250 ML IV ONE (19:30)
[2021-06-12] MEDS: ATORVASTATIN 20 MG TAB PO SCH (19:53)
[2021-06-12] MEDS: INSULIN GLARGINE 100 UNITS/ML VIAL SQ SCH (19:54)
[2021-06-12 20:00] VITALS: BP 99/75
[2021-06-12] MEDS: ATORVASTATIN 10 MG TAB PO SCH (20:06)
[2021-06-12 20:48] VITALS: BP 99/75
[2021-06-12] MEDS ORDERED: POTASSIUM CHLORIDE 10MEQ EA PO ONE (21:45)
[2021-06-12 22:06] LABS: BAND NEUTROPHILS % (MANUAL) 2 %; LYMPHOCYTES % (MANUAL) 5 % (19-48); MONOCYTES % (MANUAL) 3 % (3.4-9.0); NEUTROPHILS % (MANUAL) 90 % (40-74)
[2021-06-12 22:07] LABS: POLYCHROMASIA FEW
[2021-06-12 22:08] LABS: HYPOCHROMASIA SLIG; PLATELET ESTIMATE ADEQUATE; PLATELET MORPHOLOGY COMMENT NORMAL
[2021-06-13] VITALS (7 sets, daily range): BP systolic 93–178; BP diastolic 25–94
[2021-06-13 07:14] LABS: BASOPHILS # (AUTO) 0.1 (0.0-0.1); BASOPHILS % 0.3 % (0.0-1.0); EOSINOPHILS # (AUTO) 0.1 (0.0-0.4); EOSINOPHILS % 0.3 % (0.0-6.0); HEMATOCRIT 28.7 % (38.2-49.6); HEMOGLOBIN 8.4 g/dL (14.0-18.0); LYMPHOCYTES # (AUTO) 1.2 (1.0-3.2); MEAN CORPUSCULAR HEMOGLOBIN 30.8 pg (28-32); MEAN CORPUSCULAR HGB CONC 29.3 g/dL (31-35); MEAN CORPUSCULAR VOLUME 105.1 fL (81-99); MONOCYTES % 4.1 % (4.4-11.3); NEUTROPHILS # (AUTO) 21.7 (2.1-6.9); NEUTROPHILS % 87.7 % (38.7-80.0); PLATELET COUNT 457 x10e3/uL (140-360); RED BLOOD COUNT 2.73 x10e6/uL (4.3-5.7); RED CELL DISTRIBUTION WIDTH 15.9 % (11.7-14.4)
[2021-06-13 07:51] LABS: ALBUMIN 1.8 g/dL (3.5-5.0); ALBUMIN/GLOBULIN RATIO 0.4 (0.8-2.0); ANION GAP 15.1 mmol/L (8-16); CALCIUM 8.1 mg/dL (8.4-10.2); CREATININE, SERUM 6.05 mg/dL (0.72-1.25); MAGNESIUM 1.9 MG/DL (1.3-2.1); PHOSPHORUS 4.3 MG/DL (2.3-4.7); POTASSIUM 4.1 mmol/L (3.5-5.1)
[2021-06-13] MEDS: ASPIRIN 81 MG ENTERIC COATED PO SCH (09:38)
[2021-06-13] MEDS: CARVEDILOL 12.5 MG TAB PO SCH ×2 (09:38→16:46)
[2021-06-13] MEDS: INSULIN REGULAR, HUMAN 100 UNIT/1 ML SQ SCH ×4 (09:41→20:31)
[2021-06-13] MEDS: INSULIN GLARGINE 100 UNITS/ML VIAL SQ SCH ×2 (09:42→20:31)
[2021-06-13] MEDS: CEFEPIME 1 GM in SODIUM CHLORIDE 0.9% 50ML 50 ML IV SCH (13:09)
[2021-06-13] MEDS: Vancomycin IV 1 GM in SODIUM CHLORIDE 0.9% 250ML 250 ML IV SCH (14:27)
[2021-06-13] MEDS: ENOXAPARIN 30 MG/0.3 ML SYR SC SCH (16:46)
[2021-06-13] MEDS: ATORVASTATIN 20 MG TAB PO SCH (20:31)
[2021-06-13] MEDS: ATORVASTATIN 10 MG TAB PO SCH (20:32)
[2021-06-13] MEDS ORDERED: SODIUM CHLORIDE 0.9% 1000ML 1,000 ML ONE (22:07)
[2021-06-14] VITALS (7 sets, daily range): BP systolic 106–150; BP diastolic 45–75
[2021-06-14 06:09] LABS: BASOPHILS # (AUTO) 0.1 (0.0-0.1); BASOPHILS % 0.3 % (0.0-1.0); EOSINOPHILS # (AUTO) 0.1 (0.0-0.4); EOSINOPHILS % 0.4 % (0.0-6.0); HEMOGLOBIN 8.4 g/dL (14.0-18.0); LYMPHOCYTES % 5.2 % (18.0-39.1); MEAN CORPUSCULAR HEMOGLOBIN 30.8 pg (28-32); MEAN CORPUSCULAR VOLUME 106.2 fL (81-99); MONOCYTES # (AUTO) 1.2 (0.2-0.8); MONOCYTES % 6.2 % (4.4-11.3); NEUTROPHILS # (AUTO) 16.9 (2.1-6.9); NEUTROPHILS % 86.2 % (38.7-80.0); PLATELET COUNT 433 x10e3/uL (140-360); RED BLOOD COUNT 2.73 x10e6/uL (4.3-5.7); RED CELL DISTRIBUTION WIDTH 16.4 % (11.7-14.4)
[2021-06-14 06:47] LABS: ALBUMIN 1.7 g/dL (3.5-5.0); ALBUMIN/GLOBULIN RATIO 0.4 (0.8-2.0); CREATININE, SERUM 4.42 mg/dL (0.72-1.25)
[2021-06-14 07:48] LABS: ANISOCYTOSIS SLIGHT; PLATELET ESTIMATE ADEQUATE; PLATELET MORPHOLOGY COMMENT NORMAL; RBC MORPHOLOGY COMMENT NORMAL
[2021-06-14 07:49] LABS: HYPOCHROMASIA SLIGHT; POLYCHROMASIA FEW
[2021-06-14] MEDS ORDERED: TOBRAMYCIN 1.2GM BULK BOTTLE ONE (08:00)
[2021-06-14] MEDS ORDERED: ROPIVACAINE 246.25 MG, EPINEPHRINE HCL 1:1000 1ML 0.5 MG, CLONIDINE HCL 0.08 MG, KETORO... INJ ONE ×5 (08:00)
[2021-06-14] MEDS ORDERED: Vancomycin IV 1 GM VIAL ONE ×2 (08:00→11:30)
[2021-06-14] MEDS: ASPIRIN 81 MG ENTERIC COATED PO SCH (09:00)
[2021-06-14] MEDS: CARVEDILOL 12.5 MG TAB PO SCH ×2 (09:44→17:38)
[2021-06-14] MEDS: INSULIN REGULAR, HUMAN 100 UNIT/1 ML SQ SCH ×4 (09:46→20:54)
[2021-06-14] MEDS: INSULIN GLARGINE 100 UNITS/ML VIAL SQ SCH ×2 (09:47→21:00)
[2021-06-14] MEDS ORDERED: SODIUM CHLORIDE 0.9% 500ML 500 ML ONE (11:38)
[2021-06-14] MEDS ORDERED: Vancomycin IV 500 MG ONE (11:39)
[2021-06-14] MEDS ORDERED: TRANEXAMIC ACID 1,000 MG/10 ML ML ONE (11:39)
[2021-06-14] MEDS: CEFEPIME 1 GM in SODIUM CHLORIDE 0.9% 50ML 50 ML IV SCH (12:00)
[2021-06-14] MEDS: Vancomycin IV 1 GM in SODIUM CHLORIDE 0.9% 250ML 250 ML IV SCH (12:43)
[2021-06-14] MEDS ORDERED: HYDROCODONE/APAP 5MG-325MG TAB PO PRN (13:15)
[2021-06-14] MEDS ORDERED: ONDANSETRON HCL INJ 2MG/ML 2ML 2 MG/ML VIAL IV PRN (13:15)
[2021-06-14] MEDS ORDERED: Vancomycin IV 1 GM in SODIUM CHLORIDE 0.9% 250ML 250 ML IV SCH (13:15)
[2021-06-14] MEDS ORDERED: DOCUSATE SODIUM 100 MG CAP PO PRN (13:15)
[2021-06-14] MEDS ORDERED: KETOROLAC TROMETHAMINE 30 MG/ML VIAL IV PRN (13:15)
[2021-06-14] MEDS ORDERED: DIPHENHYDRAMINE HCL INJ 50 MG/ML VIAL IV PRN (13:15)
[2021-06-14] MEDS ORDERED: ACETAMINOPHEN 650 MG SUPP PR PRN (13:15)
[2021-06-14] MEDS ORDERED: ZOLPIDEM TARTRATE 5 MG TAB PO PRN (13:15)
[2021-06-14] MEDS ORDERED: FENTANYL CITRATE/PF 100MCG/2 ML INJ ONE (13:44)
[2021-06-14] MEDS: HYDROCODONE/APAP 7.5MG-325MG 1 EA TAB PO PRN ×2 (15:03→20:54)
[2021-06-14] MEDS: SODIUM CHLORIDE 0.9% 1000ML 1,000 ML IV SCH (15:15)
[2021-06-14] MEDS: ENOXAPARIN 30 MG/0.3 ML SYR SC SCH (17:21)
[2021-06-14] MEDS: ASPIRIN 325 MG TAB PO SCH (17:21)
[2021-06-14] MEDS: ATORVASTATIN 20 MG TAB PO SCH (20:05)
[2021-06-14] MEDS: DEXTROSE 50% SYRINGE 50 ML IV PRN (20:54)
[2021-06-15] VITALS (8 sets, daily range): BP systolic 89–143; BP diastolic 52–66
[2021-06-15] MEDS: SODIUM CHLORIDE 0.9% 1000ML 1,000 ML IV SCH ×3 (01:10→20:03)
[2021-06-15] MEDS: Vancomycin IV 1 GM in SODIUM CHLORIDE 0.9% 250ML 250 ML IV SCH (04:37)
[2021-06-15 06:48] LABS: ALBUMIN 1.6 g/dL (3.5-5.0); ALBUMIN/GLOBULIN RATIO 0.4 (0.8-2.0); ANION GAP 14.9 mmol/L (8-16); CALCIUM 7.8 mg/dL (8.4-10.2); CREATININE, SERUM 3.16 mg/dL (0.72-1.25); POTASSIUM 3.9 mmol/L (3.5-5.1)
[2021-06-15] MEDS: ASPIRIN 325 MG TAB PO SCH ×2 (08:53→17:57)
[2021-06-15] MEDS: CARVEDILOL 12.5 MG TAB PO SCH ×2 (08:57→17:00)
[2021-06-15] MEDS: INSULIN GLARGINE 100 UNITS/ML VIAL SQ SCH ×2 (09:11→20:58)
[2021-06-15] MEDS: INSULIN REGULAR, HUMAN 100 UNIT/1 ML SQ SCH ×3 (09:11→20:58)
[2021-06-15 09:25] LABS: BASOPHILS # (AUTO) 0.1 (0.0-0.1); BASOPHILS % 0.3 % (0.0-1.0); HEMOGLOBIN 8.3 g/dL (14.0-18.0); LYMPHOCYTES # (AUTO) 1.1 (1.0-3.2); LYMPHOCYTES % 5.2 % (18.0-39.1); MEAN CORPUSCULAR HEMOGLOBIN 30.9 pg (28-32); MEAN CORPUSCULAR HGB CONC 28.6 g/dL (31-35); MEAN CORPUSCULAR VOLUME 107.8 fL (81-99); MONOCYTES # (AUTO) 1.3 (0.2-0.8); MONOCYTES % 6.1 % (4.4-11.3); NEUTROPHILS % 86.6 % (38.7-80.0); PLATELET COUNT 379 x10e3/uL (140-360); RED BLOOD COUNT 2.69 x10e6/uL (4.3-5.7); RED CELL DISTRIBUTION WIDTH 16.9 % (11.7-14.4)
[2021-06-15] MEDS: HYDROCODONE/APAP 7.5MG-325MG 1 EA TAB PO PRN (10:16)
[2021-06-15] MEDS ORDERED: INSULIN REGULAR, HUMAN 100 UNIT/1 ML SQ SCH (11:30)
[2021-06-15] MEDS: CEFEPIME 1 GM in SODIUM CHLORIDE 0.9% 50ML 50 ML IV SCH (12:00)
[2021-06-15] MEDS ORDERED: ACETAMINOPHEN 1000 MG/100 ML IV PRN (13:15)
[2021-06-15] MEDS: ENOXAPARIN 30 MG/0.3 ML SYR SC SCH (17:57)
[2021-06-15] MEDS: ATORVASTATIN 20 MG TAB PO SCH (20:03)
[2021-06-16] VITALS: BP 105/58
[2021-06-16 04:00] VITALS: BP 111/66
[2021-06-16] MEDS: SODIUM CHLORIDE 0.9% 1000ML 1,000 ML IV SCH (05:15)
[2021-06-16 06:17] LABS: ANION GAP 14.5 mmol/L (8-16); CALCIUM 7.3 mg/dL (8.4-10.2); POTASSIUM 4.5 mmol/L (3.5-5.1)
[2021-06-16 07:02] LABS: CREATININE, SERUM 4.38 mg/dL (0.72-1.25)
[2021-06-16] MEDS: INSULIN REGULAR, HUMAN 100 UNIT/1 ML SQ SCH ×4 (07:30→21:00)
[2021-06-16 07:50] VITALS: BP 111/59
[2021-06-16 08:14] LABS: BASOPHILS # (AUTO) 0.1 (0.0-0.1); BASOPHILS % 0.2 % (0.0-1.0); EOSINOPHILS # (AUTO) 0.2 (0.0-0.4); EOSINOPHILS % 0.9 % (0.0-6.0); HEMATOCRIT 24.2 % (38.2-49.6); HEMOGLOBIN 7.2 g/dL (14.0-18.0); LYMPHOCYTES # (AUTO) 1.2 (1.0-3.2); LYMPHOCYTES % 5.3 % (18.0-39.1); MEAN CORPUSCULAR HEMOGLOBIN 30.5 pg (28-32); MEAN CORPUSCULAR HGB CONC 29.8 g/dL (31-35); MEAN CORPUSCULAR VOLUME 102.5 fL (81-99); MONOCYTES # (AUTO) 1.1 (0.2-0.8); MONOCYTES % 4.9 % (4.4-11.3); NEUTROPHILS # (AUTO) 18.9 (2.1-6.9); PLATELET COUNT 443 x10e3/uL (140-360); RED BLOOD COUNT 2.36 x10e6/uL (4.3-5.7); RED CELL DISTRIBUTION WIDTH 16.7 % (11.7-14.4)
[2021-06-16 09:00] VITALS: BP 111/59
[2021-06-16] MEDS: CARVEDILOL 12.5 MG TAB PO SCH ×2 (09:00→17:00)
[2021-06-16] MEDS: INSULIN GLARGINE 100 UNITS/ML VIAL SQ SCH ×2 (09:00→21:00)
[2021-06-16] MEDS ORDERED: SODIUM CHLORIDE 0.9% 50ML 50 ML ONE (11:34)
[2021-06-16] MEDS ORDERED: IOPAMIDOL 370 MG/ML 200 ML INFUS..BTL INJ ONE (11:34)
[2021-06-16] MEDS: CEFEPIME 1 GM in SODIUM CHLORIDE 0.9% 50ML 50 ML IV SCH (11:36)
[2021-06-16] MEDS ORDERED: SODIUM CHLORIDE 0.9% 250ML 250 ML IV ONE (11:45)
[2021-06-16 14:06] LABS: IRON 33 ug/dL (65-175); TRANSFERRIN < 70 mg/dL (174-364)
[2021-06-16] MEDS ORDERED: SODIUM CHLORIDE 0.9% 1000ML 1,000 ML ONE (14:48)
[2021-06-16 15:03] LABS: FERRITIN 8049.48 ng/mL (21.81-274.66)
[2021-06-16] MEDS ORDERED: SODIUM CHLORIDE 0.9% 250ML 250 ML ONE (15:47)
[2021-06-16 20:38] VITALS: BP 130/75
[2021-06-16] MEDS: Vancomycin IV 1 GM in SODIUM CHLORIDE 0.9% 250ML 250 ML IV SCH (21:04)
[2021-06-16] MEDS: ATORVASTATIN 20 MG TAB PO SCH (21:04)
[2021-06-17] VITALS (9 sets, daily range): BP systolic 115–138; BP diastolic 61–72
[2021-06-17 05:11] LABS: BASOPHILS # (AUTO) 0.1 (0.0-0.1); BASOPHILS % 0.2 % (0.0-1.0); EOSINOPHILS # (AUTO) 0.2 (0.0-0.4); EOSINOPHILS % 0.7 % (0.0-6.0); HEMATOCRIT 29.9 % (38.2-49.6); HEMOGLOBIN 9.3 g/dL (14.0-18.0); LYMPHOCYTES # (AUTO) 1.1 (1.0-3.2); LYMPHOCYTES % 5.2 % (18.0-39.1); MEAN CORPUSCULAR HEMOGLOBIN 30.7 pg (28-32); MEAN CORPUSCULAR HGB CONC 31.1 g/dL (31-35); MEAN CORPUSCULAR VOLUME 98.7 fL (81-99); MONOCYTES # (AUTO) 1.1 (0.2-0.8); MONOCYTES % 5.1 % (4.4-11.3); NEUTROPHILS # (AUTO) 18.8 (2.1-6.9); NEUTROPHILS % 86.8 % (38.7-80.0); PLATELET COUNT 410 x10e3/uL (140-360); RED BLOOD COUNT 3.03 x10e6/uL (4.3-5.7); RED CELL DISTRIBUTION WIDTH 17.9 % (11.7-14.4)
[2021-06-17] MEDS: DEXTROSE 50% SYRINGE 50 ML IV PRN (06:01)
[2021-06-17 06:14] LABS: ALBUMIN 1.6 g/dL (3.5-5.0); ALBUMIN/GLOBULIN RATIO 0.4 (0.8-2.0); CALCIUM 7.8 mg/dL (8.4-10.2); CREATININE, SERUM 3.16 mg/dL (0.72-1.25)
[2021-06-17] MEDS ORDERED: Vancomycin IV 1 GM VIAL ONE (06:43)
[2021-06-17] MEDS ORDERED: HYDROMORPHONE 1MG/1ML INJ IV PRN (07:15)
[2021-06-17] MEDS: INSULIN REGULAR, HUMAN 100 UNIT/1 ML SQ SCH ×4 (07:30→19:59)
[2021-06-17] MEDS ORDERED: ACETAMINOPHEN 650 MG SUPP PR PRN (07:30)
[2021-06-17] MEDS ORDERED: ONDANSETRON HCL INJ 2MG/ML 2ML 2 MG/ML VIAL IV PRN (07:30)
[2021-06-17] MEDS ORDERED: DIPHENHYDRAMINE HCL INJ 50 MG/ML VIAL IV PRN (07:30)
[2021-06-17] MEDS ORDERED: HYDROCODONE/APAP 7.5MG-325MG 1 EA TAB PO PRN (07:30)
[2021-06-17] MEDS ORDERED: Vancomycin IV 1 GM in SODIUM CHLORIDE 0.9% 250ML 250 ML IV SCH (07:30)
[2021-06-17] MEDS ORDERED: ZOLPIDEM TARTRATE 5 MG TAB PO PRN (07:30)
[2021-06-17] MEDS ORDERED: DOCUSATE SODIUM 100 MG CAP PO PRN (07:30)
[2021-06-17] MEDS ORDERED: HYDROCODONE/APAP 5MG-325MG TAB PO PRN (07:30)
[2021-06-17] MEDS ORDERED: KETOROLAC TROMETHAMINE 30 MG/ML VIAL IV PRN (07:30)
[2021-06-17] MEDS ORDERED: FENTANYL CITRATE/PF 100MCG/2 ML INJ ONE (08:02)
[2021-06-17 08:19] LABS: FERRITIN 8913.86 ng/mL (21.81-274.66)
[2021-06-17] MEDS: SODIUM CHLORIDE 0.9% 1000ML 1,000 ML IV SCH ×2 (08:49→16:53)
[2021-06-17] MEDS: CARVEDILOL 12.5 MG TAB PO SCH ×2 (08:50→16:53)
[2021-06-18] VITALS (7 sets, daily range): BP systolic 101–154; BP diastolic 57–69
[2021-06-18] MEDS: SODIUM CHLORIDE 0.9% 1000ML 1,000 ML IV SCH ×2 (04:35→14:00)
[2021-06-18 05:44] LABS: BASOPHILS # (AUTO) 0.1 (0.0-0.1); BASOPHILS % 0.3 % (0.0-1.0); EOSINOPHILS # (AUTO) 0.1 (0.0-0.4); EOSINOPHILS % 0.8 % (0.0-6.0); HEMATOCRIT 29.6 % (38.2-49.6); LYMPHOCYTES # (AUTO) 1.2 (1.0-3.2); LYMPHOCYTES % 7.9 % (18.0-39.1); MEAN CORPUSCULAR HEMOGLOBIN 30.6 pg (28-32); MEAN CORPUSCULAR HGB CONC 30.4 g/dL (31-35); MEAN CORPUSCULAR VOLUME 100.7 fL (81-99); MONOCYTES # (AUTO) 0.9 (0.2-0.8); MONOCYTES % 5.7 % (4.4-11.3); NEUTROPHILS # (AUTO) 13.2 (2.1-6.9); PLATELET COUNT 387 x10e3/uL (140-360); RED BLOOD COUNT 2.94 x10e6/uL (4.3-5.7); RED CELL DISTRIBUTION WIDTH 17.3 % (11.7-14.4)
[2021-06-18 06:14] LABS: ALBUMIN 1.6 g/dL (3.5-5.0); ALBUMIN/GLOBULIN RATIO 0.4 (0.8-2.0); CALCIUM 7.5 mg/dL (8.4-10.2); CREATININE, SERUM 4.78 mg/dL (0.72-1.25)
[2021-06-18] MEDS ORDERED: ACETAMINOPHEN 1000 MG/100 ML IV PRN (07:30)
[2021-06-18] MEDS: INSULIN REGULAR, HUMAN 100 UNIT/1 ML SQ SCH ×3 (07:30→15:51)
[2021-06-18] MEDS: CARVEDILOL 12.5 MG TAB PO SCH ×2 (08:22→15:50)
[2021-06-18] MEDS ORDERED: SODIUM CHLORIDE 0.9% 250ML 500 ML IV PRN (08:30)
[2021-06-18] MEDS ORDERED: SODIUM CHLORIDE 0.9% 1000ML 2,000 ML IV PRN (08:30)
[2021-06-18] MEDS ORDERED: SODIUM CHLORIDE 0.9% 1000ML 2,000 ML ONE (08:33)
[2021-06-18] MEDS ORDERED: CEFAZOLIN SODI500 MG IV (11:17)
[2021-06-18] MEDS ORDERED: ONDANSETRON HCL 4 MG ORAL DISINTEGRATING TAB PO PRN (13:45)
[2021-06-19] MEDS ORDERED: ASPIRIN 81 MG CHEW TAB PO SCH (09:00)
[2021-06-21 11:08] VITALS: BP 123/64
== END 2021-06-18 17:30 | disposition home or self-care (01) | DRG 853 ==
LOC: MED/SURG3 11:00
PROVIDERS: ADMIT Internal Medicine; ATTEND Internal Medicine
PROC: 5A1D70Z Performance of Urinary Filtration, Intermittent, Less than 6 Hours Per Day (ICD-10-PCS; 2021-06-13)
PROC: 0SRB0EZ Replacement of Left Hip Joint with Articulating Spacer, Open Approach (ICD-10-PCS; 2021-06-14)
PROC: 0JBM0ZZ Excision of Left Upper Leg Subcutaneous Tissue and Fascia, Open Approach (ICD-10-PCS; 2021-06-14 12:30)
PROC: 30243N1 Transfusion of Nonautologous Red Blood Cells into Central Vein, Percutaneous Approach (ICD-10-PCS; principal; 2021-06-16)
PROC: 0JBM0ZZ Excision of Left Upper Leg Subcutaneous Tissue and Fascia, Open Approach (ICD-10-PCS; 2021-06-17)
PROC: 0S9D0ZZ Drainage of Left Knee Joint, Open Approach (ICD-10-PCS; 2021-06-17)
DX: A41.01 Sepsis due to Methicillin susceptible Staphylococcus aureus (principal); E43 Unspecified severe protein-calorie malnutrition; N18.6 End stage renal disease; K68.12 Psoas muscle abscess; M00.052 Staphylococcal arthritis, left hip; I13.2 Hypertensive heart and chronic kidney disease with heart failure and with stage 5 chronic kidney disease, or end stage renal disease; I50.22 Chronic systolic (congestive) heart failure; M86.8X5 Other osteomyelitis, thigh; L02.416 Cutaneous abscess of left lower limb; E87.1 Hypo-osmolality and hyponatremia; D63.1 Anemia in chronic kidney disease; Z68.30 Body mass index [BMI] 30.0-30.9, adult; E11.22 Type 2 diabetes mellitus with diabetic chronic kidney disease; Z99.2 Dependence on renal dialysis; Z79.899 Other long term (current) drug therapy; Z95.810 Presence of automatic (implantable) cardiac defibrillator; E87.6 Hypokalemia; I25.10 Atherosclerotic heart disease of native coronary artery without angina pectoris; Z95.1 Presence of aortocoronary bypass graft; E11.40 Type 2 diabetes mellitus with diabetic neuropathy, unspecified; Z86.718 Personal history of other venous thrombosis and embolism; Z79.01 Long term (current) use of anticoagulants; E78.5 Hyperlipidemia, unspecified; E11.69 Type 2 diabetes mellitus with other specified complication; Z20.822 Contact with and (suspected) exposure to COVID-19; Z79.4 Long term (current) use of insulin
CPT/HCPCS: 36415; 71250; 72170; 74177; 80048; 80053; 82270; 82728; 82948; 83540; 83735; 84100; 84466; 85025; 85651; 86140; 86704; 86706; 86850; 86900; 86920; 87040; 87071; 87075; 87102; 87186; 87205; 87206; 87340; 90962; 93005; 93306; 93970; 97139; C1713; J0171; J0690; J0692; J1170; J1650; J1815; J1817; J1885; J2405; J2795; J3010; J3370; J7030; J7040; J7050; J7799; P9016; Q9967; U0002

== ENCOUNTER 2022-10-10 02:46 | Observation (INO) | payer MEDICARE ==
[~2022-10-10] VITALS: Ht 170.2 cm; Wt 81.6 kg
[~2022-10-10 02:46] MED LIST changes: +CEFAZOLIN SODI500 MG IV; +ELIQUIS5 MG PO; +LOSARTAN POTASS50 MG PO; +METOPROLOL SUCC25 MG PO
[2022-10-10 03:38] LABS: BASOPHILS % 0.6 % (0.0-1.0); EOSINOPHILS # (AUTO) 0.4 (0.0-0.4); EOSINOPHILS % 6.1 % (0.0-6.0); HEMATOCRIT 36.3 % (38.2-49.6); HEMOGLOBIN 11.4 g/dL (14.0-18.0); LYMPHOCYTES # (AUTO) 1.8 (1.0-3.2); LYMPHOCYTES % 28.3 % (18.0-39.1); MEAN CORPUSCULAR HEMOGLOBIN 32.9 pg (28-32); MEAN CORPUSCULAR HGB CONC 31.4 g/dL (31-35); MEAN CORPUSCULAR VOLUME 104.6 fL (81-99); MONOCYTES # (AUTO) 0.8 (0.2-0.8); MONOCYTES % 12.9 % (4.4-11.3); NEUTROPHILS # (AUTO) 3.2 (2.1-6.9); NEUTROPHILS % 51.6 % (38.7-80.0); PLATELET COUNT 188 x10e3/uL (140-360); RED BLOOD COUNT 3.47 x10e6/uL (4.3-5.7); RED CELL DISTRIBUTION WIDTH 12.2 % (11.7-14.4)
[2022-10-10 03:51] LABS: INR 1.21; PROTHROMBIN TIME 15.5 seconds (11.9-14.5)
[2022-10-10 03:52] LABS: PARTIAL THROMBOPLASTIN TIME 32.5 seconds (23.8-35.5)
[2022-10-10 04:00] LABS: ALBUMIN 3.7 g/dL (3.5-5.0); ALBUMIN/GLOBULIN RATIO 0.9 (0.8-2.0); ANION GAP 22.3 mmol/L (8-16); CALCIUM 8.1 mg/dL (8.4-10.2); CREATININE, SERUM 9.85 mg/dL (0.72-1.25); POTASSIUM 4.3 mmol/L (3.5-5.1)
[2022-10-10] MEDS ORDERED: ONDANSETRON HCL INJ 2MG/ML 2ML 2 MG/ML VIAL IV PRN (05:15)
[2022-10-10] MEDS ORDERED: SODIUM CHLORIDE FLUSH 10 ML SYR IV PRN (06:00)
[2022-10-10] MEDS ORDERED: METOPROLOL SUCCINATE 25 MG TAB XL PO SCH (09:00)
[2022-10-10] MEDS ORDERED: INSULIN GLARGINE 100 UNITS/ML VIAL SQ SCH (09:00)
[2022-10-10] MEDS ORDERED: CARVEDILOL 12.5 MG TAB PO SCH (09:00)
[2022-10-10] MEDS ORDERED: APIXAB 2.5 MG TABLET PO SCH (09:00)
[2022-10-10] MEDS ORDERED: LOSARTAN POTASSIUM 25 MG TAB PO SCH (09:00)
[2022-10-10 10:04] VITALS: BP 139/73
[2022-10-10] MEDS ORDERED: SEVELAMER CARBONATE 800 MG TAB PO SCH (12:00)
== END 2022-10-10 10:11 | disposition home or self-care (01) ==
LOC: ER 02:55 → ERHOLD 05:09
PROVIDERS: ADMIT Internal Medicine; ATTEND Internal Medicine
DX: J20.9 Acute bronchitis, unspecified (principal); I13.2 Hypertensive heart and chronic kidney disease with heart failure and with stage 5 chronic kidney disease, or end stage renal disease; I50.43 Acute on chronic combined systolic (congestive) and diastolic (congestive) heart failure; N18.6 End stage renal disease; E11.22 Type 2 diabetes mellitus with diabetic chronic kidney disease; E11.65 Type 2 diabetes mellitus with hyperglycemia; Z99.2 Dependence on renal dialysis; Z79.4 Long term (current) use of insulin; E11.51 Type 2 diabetes mellitus with diabetic peripheral angiopathy without gangrene; Z79.899 Other long term (current) drug therapy; I42.9 Cardiomyopathy, unspecified; I25.10 Atherosclerotic heart disease of native coronary artery without angina pectoris; Z95.1 Presence of aortocoronary bypass graft; Z87.891 Personal history of nicotine dependence; Z20.822 Contact with and (suspected) exposure to COVID-19
CPT/HCPCS: 36415; 71045; 80053; 83880; 84484; 85025; 85610; 85730; 99284; G0378; U0002